=== PATIENT | male | born 1950 | race Caucasian/White ===

== ENCOUNTER 2024-10-26 09:11 | Emergency (ER) | payer MEDICARE, SELFPAY ==
[2024-10-26 09:11] VITALS: BP 172/85; PULSE 81; RESP 14; TEMP 36.1; O2SAT 95; O2SAT 98; BMI 32.7
--- NOTE | 2024-10-26 09:30 | ED.VIS.DYS ---
HPI History of Present Illness Chief Complaint: Shortness of Breath Informant: patient Onset/Context/Timing Onset: Month(s) (-04/28) Context: sudden Timing: Continuous Quality: Positive for Dyspnea on exertion Worsened by: Exertion Relieved by: Rest, Oxygen and Albuterol Associated Symptoms cough; Negative for rhinorrhea, post nasal drip, ear pain, fever, sore throat, chills, clear sputum, white sputum, yellow sputum or green sputum Narrative Narrative: Patient presents with shortness of breath that has been constant for the past month and a half. Patient states a came on rather suddenly. Patient stated he noticed some bruising in his right inguinal area and then noted some shortness of breath. Patient states he has a history of PE. Patient states it feels somewhat similar to that. Patient states he has been all along a car trip recently. Patient states his breathing is worse with any exertion. Patient states he took 6 sublingual nitroglycerin tablets over the past 2 days. Patient is also used for nitroglycerin patches over the past 2 days. Patient states he completed a course of prednisone and a course of an antibiotic with no improvement. Patient states he has been using his inhaler and aerosol machine with some improvement. PE Risk Factors: Positive for Recent travel [facility] Medical History (Updated 10/26/24 @ 13:[address] Mitchell Stratton, DO) Pulmonary embolism Coronary artery disease Home Medications ?Medication ?Instructions ?Recorded ?Last Taken ?Type albuterol sulfate 90 mcg/actuation 2 inh inhalation Q6H PRN shortness 10/26/24 Unknown History aerosol inhaler (Ventolin HFA) of breath or wheezing amlodipine 10 mg tablet 10 mg PO DAILY 10/26/24 10/26/24 History escitalopram oxalate 20 mg tablet 20 mg PO DAILY 10/26/24 10/26/24 History finasteride 5 mg tablet 5 mg PO DAILY 10/26/24 10/26/24 History ipratropium 0.5 mg-albuterol 3 mg 3 ml inhalation Q8H PRN shortness 10/26/24 10/25/24 History (2.5 mg base)/3 mL nebulization of breath soln magnesium 250 mg tablet 250 mg PO DAILY 10/26/24 10/26/24 History montelukast 5 mg chewable tablet 10 mg PO DAILY 10/26/24 10/26/24 History (Singulair) multivitamin (Daily Multi-Vitamin 1 tab PO DAILY 10/26/24 10/26/24 History tablet) pantoprazole 20 mg tablet,delayed 20 mg PO DAILY 10/26/24 10/26/24 History release Allergy/AdvReac Type Severity Reaction Status Date / Time No Known Allergies Allergy Verified 10/26/24 09:14 Surgical History Hx of coronary artery bypass graft Hx of cholecystectomy Social History Smoking Status: Former smoker ROS ROS ED Constitutional Constitutional ED: Denies chills or fever(s) Eyes Eyes: Denies blurry vision or change in vision ENT ENT ED: Denies rhinorrhea or sore throat Cardiovascular Cardiovascular: Reports chest pain; Denies palpitations Respiratory/Chest Respiratory/Chest: Reports cough and dyspnea Gastrointestinal Gastrointestinal: Denies nausea or vomiting Genitourinary Genitourinary ED: Denies dysuria or hematuria Musculoskeletal Musculoskeletal: Denies back pain or neck pain Integumentary Denies abscess or rash Neurologic Neurologic: Denies headache(s) or weakness Allergic/Immunologic Allergic/Immunologic ED: Denies mouth swelling or urticaria EXAM Physical Exam Const Vital Signs: 10/26/24 09:11 10/26/24 09:11 10/26/24 09:52 Temperature 97 F L Temperature Source Temporal Pulse Rate 81 Respiratory Rate 14 Respiratory Effort Normal Respiratory Depth Normal Respiratory Pattern Normal Blood Pressure 172/85 H Blood Pressure Mean 114 Pulse Ox 98 Oxygen Delivery Method Room Air Room Air Room Air 10/26/24 11:15 10/26/24 13:00 Temperature Temperature Source Pulse Rate 67 64 Respiratory Rate 14 17 Respiratory Effort Respiratory Depth Respiratory Pattern Blood Pressure 147/82 H Blood Pressure Mean 98 Pulse Ox 96 92 Oxygen Delivery Method Room Air Positive well nourished and well developed General Appearance ED: well developed and NAD HEENT Reports moist mucous membranes Neck supple, no meningeal signs and no JVD Resp normal respiratory effort Auscultation: wheezes throughout Cardio regular rate and regular rhythm GI non-tender and non-distended Palpation: soft Neuro oriented x3, CN's II-XII intact bilaterally and no sensory deficits noted Elsa Coma Scale: document GCS findings Spontaneous Obeys Commands Oriented 15 Sensorium / Orientation: alert Speech: speech normal Motor Exam: strength 5/5 throughout Psych mental status grossly normal MDM MDM MDM Narrative Medical decision making narrative: Differential diagnosis includes pulmonary embolism, cardiac dysrhythmia, cardiac ischemia, pneumonia, bronchitis, reactive airway disease, and anxiety. EKG will be obtained to assess for cardiac dysrhythmia and cardiac ischemia. CT of the chest will be obtained to assess for pulmonary embolism and aortic dissection. CBC will be obtained to assess for leukocytosis and anemia. Basic metabolic profile will be obtained to assess for electrolyte abnormality and renal function. High-sensitivity troponin will be obtained to assess for cardiac ischemia. 2-hour repeat high-sensitivity troponin will be obtained to assess for ongoing cardiac ischemia. History & Record Review Additional record(s) reviewed:: No prior records Lab Data Attestation: I reviewed the patient's lab results. Lab results narrative: CBC was reviewed and was within normal limits. Basic metabolic profile was reviewed. He did have a mildly elevated at 164. The remainder is within normal limits. Initial high-sensitivity troponin was reviewed and was normal at 20. 2-hour repeat high-sensitivity troponin was reviewed and was normal at 17. Labs: Laboratory Results - last 24 hr 10/26/24 10/26/24 10:12 11:58 WBC 9.8 RBC 4.76 Hgb 14.2 Hct 41.4 MCV 87.0 MCH 29.8 MCHC 34.3 RDW Std Deviation 42.2 RDW Coeff of Reji 13.3 Plt Count 223 MPV 9.8 Immature Gran % (Auto) 0.500 Neut % (Auto) 57.3 Lymph % (Auto) 26.8 [place] % (Auto) 9.3 Eos % (Auto) 5.6 H Baso % (Auto) 0.5 Absolute Neuts (auto) 5.6 Absolute Lymphs (auto) 2.64 Nucleated RBC % 0 Sodium 140 Potassium 3.2 L Chloride 100 Carbon Dioxide 29.3 Anion Gap 10 BUN 21 H Creatinine 0.86 Estim Creat Clear Calc 100.69 Est GFR (MDRD) Non-Af 93 BUN/Creatinine Ratio 25.0 H Glucose 164 H Calcium 9.2 Troponin T High Sens 20 Troponin T Hi Sens 2 Hr 17 Radiography CTA PE Study: No Evidence of PE and No Evidence of Dissection Diagnostic Testing: Clinical Impression(s) from Imaging Studies Chest CTA 10/26/24 09:41 IMPRESSION: The right thyroid lobe is heterogeneous and enlarged. Consider ultrasound correlation. There is no visible pulmonary embolus. Reading Location: [facility] CT of the chest was obtained. The right thyroid lobe was enlarged. There is no evidence of pulmonary embolism. There is no evidence of aortic dissection. There is no acute infiltrate noted. This was interpreted by the radiologist and was also independently reviewed by myself. EKG Initial EKG: Attestation: I personally reviewed and interpreted this EKG as follows: Interpretation: Sinus Rhythm (70) and No Acute Injury Pattern Comments: EKG was obtained. On my independent interpretation, it showed a normal sinus rhythm with a rate of 70. VT interval, QRS interval, and QTc intervals were all normal. There is left axis deviation -23. There are no acute ST or T wave changes. Prior EKG tracings: not available for review Prior: No Prior Treatment and Re-Evaluation :: Patient was given aspirin. Patient felt better after this. Patient was advised of his findings. Patient was instructed to continue his aerosols and inhalers as prescribed. Patient was given a dose of Solu-Medrol here. Patient was instructed to follow-up with his primary care physician in 5 to 7 days. Patient was instructed to return if worse in any way. Patient understood and was agreeable with the plan. All questions were answered. Discharge Plan Triage Chief Complaint: Shortness of Breath ED Provider: Mitchell Stratton Dx/Rx/DC Orders Clinical Impression: Dyspnea, Reactive airway disease Instructions: ED Dyspnea, ED MDI Use Spacer or None Prescriptions: No Action amlodipine 10 mg tablet 10 mg PO DAILY escitalopram oxalate 20 mg tablet 20 mg PO DAILY finasteride 5 mg tablet 5 mg PO DAILY montelukast [Singulair] 5 mg tablet,chewable 10 mg PO DAILY albuterol sulfate [Ventolin HFA] 90 mcg/actuation HFA aerosol inhaler 2 inh inhalation Q6H PRN (Reason: shortness of breath or wheezing) pantoprazole 20 mg tablet,delayed release (DR/EC) 20 mg PO DAILY magnesium 250 mg tablet 250 mg PO DAILY ipratropium-albuterol 0.5 mg-3 mg(2.5 mg base)/3 mL solution for nebulization 3 ml inhalation Q8H PRN (Reason: shortness of breath) Rx Instructions: for 3 doses multivitamin [Daily Multi-Vitamin] Tablet 1 tab PO DAILY Primary Care Provider: Ana Rosa Doctor,Out of Referrals: Ana Rosa Doctor,Out of [Primary Care Provider] - 5-7 Days Print Language: Nepali Disposition Disposition: Home, Self Care
--- NOTE | 2024-10-26 09:41 | CT_ITS ---
PROCEDURE: CTA CHEST W/WO CONTRAST 10/26/2024 REASON FOR EXAM: DYSPNEA TECHNIQUE: CTA CHEST W/WO CONTRAST Multiplanar Sagittal and Coronal images were obtained. CONTRAST: 100 cc Isovue 370 One or more dose reduction techniques were used (e.g., Automated exposure control, adjustment of the mA and/or kV according to patient size, use of iterative reconstruction technique). RADIATION DOSE SUMMARY: DLP: 543.29 mGycm COMPARISON: None FINDINGS: Hardware: Sternotomy wires are noted the right thyroid lobe is heterogeneously enlarged. Lymph nodes: There is no pathologic adenopathy. Heart: Atherosclerotic calcifications are noted RV/LV Diameter Ratio: 0.8 Thoracic Aorta: Aortic calcifications are noted Pulmonary Vessels: Pulmonary artery Hounsfield units = 278. Most Proximal Level of Embolus (if embolus present): Lungs and Airways: There is no infiltrate or consolidation. There is no suspicious pulmonary nodule or mass. Pleura: There is no pneumothorax or effusion. Upper Abdomen: 2 cm cyst is noted in the left hepatic lobe. Bones: There is no acute bony abnormality. CT/CTA Chest W/WO Contrast IMPRESSION: The right thyroid lobe is heterogeneous and enlarged. Consider ultrasound jose elation. There is no visible pulmonary embolus. Reading Location: [facility]
[2024-10-26 10:28] LABS: Hematocrit 41.4 % (40-54); Hemoglobin 14.2 g/dL (13.0-16.5); Immature Granulocytes Count 0.050 X10^3/uL (0.0-0.0); Mean Corp Hgb Conc 34.3 g/dL (32-36); Mean Corpuscular Volume 87.0 fL (80-94); Mean Platelet Vol. 9.8 fl (6.2-12.0); NRBC Flagged by Analyzer 0 % (0-5); Platelet Count 223 K/mm3 (150-450); RBC Distribution Width CV 13.3 % (11.6-14.6); RBC Distribution Width SD 42.2 fl (35.1-43.9); Red Blood Count 4.76 M/mm3 (4.6-6.2); White Blood Count 9.8 K/mm3 (4.4-11.0)
[2024-10-26 11:11] LABS: Anion Gap 10 (5-15); BUN 21 mg/dL (4-19); BUN/Creat Ratio 25.0 RATIO (10-20); Calcium,Total 9.2 mg/dL (7.6-11.0); Carbon Dioxide 29.3 mmol/L (21.0-32.0); Chloride 100 mmol/L (98-108); Estimated Creatinine Clearance 100.69 ml/min (50-250); Glucose 164 mg/dL (70-99); Potassium 3.2 mmol/L (3.3-5.1); Troponin T High Sensitivity 20 ng/L (<=22)
[2024-10-26 11:15] VITALS: BP 147/82; PULSE 67; RESP 14; O2SAT 96
[2024-10-26 12:38] LABS: Troponin T High Sens 2 HR 17 ng/L (<=22)
[2024-10-26 13:00] VITALS: PULSE 64; RESP 17; O2SAT 92
[2024-10-26 13:30] VITALS: BP 161/79; PULSE 64; RESP 17; TEMP 36.8; O2SAT 92
== END 2024-10-26 13:30 | disposition home or self-care (01) ==
PROVIDERS: Emergency Provider Emergency Medicine; Visit Provider Emergency Medicine
DX: J45.909 Unspecified asthma, uncomplicated (principal); R06.00 Dyspnea, unspecified; Z87.891 Personal history of nicotine dependence; I25.10 Atherosclerotic heart disease of native coronary artery without angina pectoris; Z90.49 Acquired absence of other specified parts of digestive tract
CPT/HCPCS: 71275; 80048; 84484; 85025; 93005; 96374; 99284; Q9967; A4216

== ENCOUNTER 2024-11-10 12:49 | Emergency (ER) | payer MEDICARE, SELFPAY ==
[2024-11-10] VITALS (18 sets, daily range): BP systolic 144–175; BP diastolic 80–123; PULSE 74–90; RESP 12–28; TEMP 36.6–36.9; O2SAT 94–98; BMI 32.5
--- NOTE | 2024-11-10 13:16 | ED.VIS.DYS ---
HPI History of Present Illness Chief Complaint: Shortness of Breath Informant: patient Onset/Context/Timing Onset: Weeks (2) Context: gradual Timing: Continuous Quality: Positive for Dyspnea on exertion and Wheezing Worsened by: Exertion Relieved by: Albuterol Associated Symptoms cough; Negative for rhinorrhea, post nasal drip, ear pain, fever, sore throat, chills, clear sputum, white sputum, yellow sputum or green sputum Chest Pain: Positive for Pressure and Tightness Narrative Narrative: Patient presents with shortness of breath that has been getting worse for the past 2 weeks. Patient states he hears himself wheezing. Patient was seen here 2 weeks ago for possible pulmonary embolism. Patient was feeling better and was discharged home. Patient states his breathing is worse with any exertion. Patient states it was better with albuterol. Patient states he has been using his albuterol nebulizers every hour. Patient admits to a cough with some brown sputum. Patient denies any fevers or chills. Patient admits to some tightness and pressure in his chest. Patient also admits to mild headache. PE Risk Factors: Positive for Recent travel; Negative for Cancer, OCP + Smoking + > 35, Prior DVT or PE, Recent immobilization or Recent surgery [facility] Medical History (Updated 11/10/24 @ 17:[address] Mitchell Stratton, DO) Asthma Pulmonary embolism Coronary artery disease Home Medications ?Medication ?Instructions ?Recorded ?Last Taken ?Type albuterol sulfate 90 mcg/actuation 2 inh inhalation Q6H PRN shortness 10/26/24 Unknown History aerosol inhaler (Ventolin HFA) of breath or wheezing amlodipine 10 mg tablet 10 mg PO DAILY 10/26/24 10/26/24 History escitalopram oxalate 20 mg tablet 20 mg PO DAILY 10/26/24 10/26/24 History finasteride 5 mg tablet 5 mg PO DAILY 10/26/24 10/26/24 History ipratropium 0.5 mg-albuterol 3 mg 3 ml inhalation Q8H PRN shortness 10/26/24 10/25/24 History (2.5 mg base)/3 mL nebulization of breath soln magnesium 250 mg tablet 250 mg PO DAILY 10/26/24 10/26/24 History montelukast 5 mg chewable tablet 10 mg PO DAILY 10/26/24 10/26/24 History (Singulair) multivitamin (Daily Multi-Vitamin 1 tab PO DAILY 10/26/24 10/26/24 History tablet) pantoprazole 20 mg tablet,delayed 20 mg PO DAILY 10/26/24 10/26/24 History release prednisone 10 mg tablet 10 mg PO UD #33 tabs 11/10/24 Unknown Rx Allergy/AdvReac Type Severity Reaction Status Date / Time No Known Allergies Allergy Verified 11/10/24 12:51 Surgical History Hx of coronary artery bypass graft Hx of cholecystectomy Social History Smoking Status: Former smoker ROS ROS ED Constitutional Constitutional ED: Denies chills or fever(s) Eyes Eyes: Denies blurry vision or change in vision ENT ENT ED: Denies rhinorrhea or sore throat Cardiovascular Cardiovascular: Reports chest pain; Denies palpitations Respiratory/Chest Respiratory/Chest: Reports cough and dyspnea Gastrointestinal Gastrointestinal: Denies nausea or vomiting Genitourinary Genitourinary ED: Denies dysuria or hematuria Musculoskeletal Musculoskeletal: Denies back pain or neck pain Integumentary Denies abscess or rash Neurologic Neurologic: Reports headache(s); Denies weakness Allergic/Immunologic Allergic/Immunologic ED: Denies mouth swelling or urticaria EXAM Physical Exam Const Vital Signs: 11/10/24 12:49 11/10/24 13:20 11/10/24 13:23 Temperature 98.4 F Temperature Source Oral Pulse Rate 90 Respiratory Rate 28 H Respiratory Effort Labored Respiratory Depth Deep Respiratory Pattern Normal Blood Pressure 155/93 H Blood Pressure Mean 113 Pulse Ox 94 Oxygen Delivery Method Room Air Room Air Room Air 11/10/24 13:49 11/10/24 14:00 11/10/24 14:03 Temperature Temperature Source Pulse Rate 80 88 88 Respiratory Rate 20 H 23 H 14 Respiratory Effort Respiratory Depth Respiratory Pattern Normal Blood Pressure 175/95 H 154/85 H Blood Pressure Mean 121 105 Pulse Ox 96 Oxygen Delivery Method Room Air 11/10/24 14:15 11/10/24 14:30 11/10/24 14:45 Temperature Temperature Source Pulse Rate 79 75 75 Respiratory Rate 19 H 20 H 20 H Respiratory Effort Respiratory Depth Respiratory Pattern Blood Pressure 152/80 H 155/80 H 152/85 H Blood Pressure Mean 100 100 101 Pulse Ox 96 95 95 Oxygen Delivery Method 11/10/24 15:00 11/10/24 15:15 11/10/24 15:52 Temperature Temperature Source Pulse Rate 75 74 81 Respiratory Rate 20 H 19 H 15 Respiratory Effort Respiratory Depth Respiratory Pattern Blood Pressure 154/86 H 144/84 H 163/123 H Blood Pressure Mean 105 102 137 Pulse Ox 95 94 96 Oxygen Delivery Method 11/10/24 16:00 11/10/24 16:15 11/10/24 16:31 Temperature Temperature Source Pulse Rate 75 80 Respiratory Rate 20 H 12 Respiratory Effort Respiratory Depth Respiratory Pattern Normal Blood Pressure 156/88 H 163/90 H Blood Pressure Mean 109 112 Pulse Ox 95 96 Oxygen Delivery Method Positive well nourished and well developed Constitutional Narrative: BMI is 32.6 General Appearance ED: well developed and NAD HEENT Reports moist mucous membranes HEENT Narrative: Oropharynx is clear. Airway is patent. There are no exudates noted. There is no erythema noted. There is no edema noted. Neck supple, no meningeal signs and no JVD Resp normal respiratory effort Auscultation: wheezes expiratory wheezes and throughout Cardio regular rate and regular rhythm GI non-tender and non-distended Palpation: soft Neuro oriented x3, CN's II-XII intact bilaterally and no sensory deficits noted Elsa Coma Scale: document GCS findings Spontaneous Obeys Commands Oriented 15 Sensorium / Orientation: alert Speech: speech normal Motor Exam: strength 5/5 throughout Psych mental status grossly normal Thought Process: normal thought process MDM MDM MDM Narrative Medical decision making narrative: Differential diagnosis includes asthma, bronchitis, pneumonia, electrolyte abnormality, cardiac dysrhythmia, cardiac ischemia, and reactive airway disease. Chest x-ray will be obtained to assess for pneumonia or bronchitis. CBC will be obtained to assess for leukocytosis and anemia. Basic metabolic profile will be obtained to assess for electrolyte abnormality and renal function. EKG will be obtained to assess for cardiac dysrhythmia cardiac ischemia. High-sensitivity troponin will be obtained to assess for cardiac ischemia. History & Record Review Additional record(s) reviewed:: Prior ED visit and Prior labs Lab Data Attestation: I reviewed the patient's lab results. Lab results narrative: CBC was reviewed and was within normal limits. Basic metabolic profile was reviewed and was within normal limits. Initial high-sensitivity troponin was reviewed and was normal at 15. 2-hour repeat high-sensitivity troponin was reviewed and was also normal at 15. COVID-19 PCR was reviewed and was negative. Influenza PCR was reviewed and was negative for influenza A and influenza B. RSV PCR was reviewed and was negative. Labs: Laboratory Results - last 24 hr 11/10/24 11/10/24 13:20 15:22 WBC 6.7 RBC 4.76 Hgb 14.0 Hct 41.5 MCV 87.2 MCH 29.4 MCHC 33.7 RDW Std Deviation 42.3 RDW Coeff of Reji 13.2 Plt Count 219 MPV 9.7 Immature Gran % (Auto) 0.100 Neut % (Auto) 55.0 Lymph % (Auto) 23.2 [place] % (Auto) 6.9 Eos % (Auto) 13.8 H Baso % (Auto) 1.0 Absolute Neuts (auto) 3.7 Absolute Lymphs (auto) 1.55 Nucleated RBC % 0 Sodium 141 Potassium 3.7 Chloride 104 Carbon Dioxide 27.1 Anion Gap 11 BUN 12 Creatinine 0.85 Estim Creat Clear Calc 101.67 Est GFR (MDRD) Non-Af 93 BUN/Creatinine Ratio 14.6 Glucose 160 H Calcium 9.3 Troponin T High Sens 15 D Troponin T Hi Sens 2 Hr 15 Radiography Diagnostic Testing: Clinical Impression(s) from Imaging Studies Chest X-Ray 11/10/24 13:42 IMPRESSION: No acute cardiopulmonary abnormality. Reading Location: [facility] PA and lateral chest x-ray was obtained. There are 2 views. On my independent interpretation, lung chu are clear. There is normal cardiac silhouette. Bony thorax is normal. There is no acute process noted. Radiologist also interpreted the x-ray and agrees. EKG Initial EKG: Attestation: I personally reviewed and interpreted this EKG as follows: Interpretation: Sinus Rhythm (80) and No Acute Injury Pattern Comments: EKG was obtained. On my independent interpretation, it showed a normal sinus rhythm with a rate of 80. RI interval, QRS interval, and QTc intervals were all normal. There is left axis deviation at -31. There are no acute ST or T wave changes. Prior EKG tracings: available for review Prior: Unchanged (10/26/2024) Treatment and Re-Evaluation :: Patient was given a DuoNeb aerosol here. Patient was given a dose of Solu-Medrol here. Patient was given a repeat DuoNeb aerosol. Patient was feeling better after this. Patient was advised of his findings. Patient states he has tried to get an appointment with a electrode cleaner. states that this will not be available until January. Patient was given a prescription for a tapered course of prednisone. Patient will be given referral for pulmonology. Patient and were instructed to let the electrode cleaner know that they were seen in the emergency department twice and they need a follow-up appointment from the emergency department. Patient and understood and were agreeable with the plan. All questions were answered. Discharge Plan Triage Chief Complaint: Shortness of Breath ED Provider: Mitchell Stratton Dx/Rx/DC Orders Clinical Impression: Asthma, Hypertension Instructions: ED Asthma, Acute (Adult) Prescriptions: New prednisone 10 mg tablet 10 mg PO UD Qty: 33 0RF Rx Instructions: Take 4 tablets daily for 3 days, then 3 daily for 3 days, then 2 daily for 3 days, then 1 a day for 3 days then 1 QOD for 3 doses. No Action amlodipine 10 mg tablet 10 mg PO DAILY escitalopram oxalate 20 mg tablet 20 mg PO DAILY finasteride 5 mg tablet 5 mg PO DAILY montelukast [Singulair] 5 mg tablet,chewable 10 mg PO DAILY albuterol sulfate [Ventolin HFA] 90 mcg/actuation HFA aerosol inhaler 2 inh inhalation Q6H PRN (Reason: shortness of breath or wheezing) pantoprazole 20 mg tablet,delayed release (DR/EC) 20 mg PO DAILY magnesium 250 mg tablet 250 mg PO DAILY ipratropium-albuterol 0.5 mg-3 mg(2.5 mg base)/3 mL solution for nebulization 3 ml inhalation Q8H PRN (Reason: shortness of breath) Rx Instructions: for 3 doses multivitamin [Daily Multi-Vitamin] Tablet 1 tab PO DAILY Primary Care Provider: Ana Rosa Gordon,Out of Referrals: Israel Boss DO [Med Staff - Active Staff] - 5-7 Days Ana Rosa Gordon,Out of [Primary Care Provider] - Activity Restrictions/Additional Instructions: Call tomorrow to schedule appointment. Tell them you were seen in the emergency department twice and this is for emergency department follow-up. Print Language: Gabonese Disposition Disposition: Home, Self Care
[2024-11-10 13:40] LABS: Hematocrit 41.5 % (40-54); Hemoglobin 14.0 g/dL (13.0-16.5); Immature Granulocytes Count 0.010 X10^3/uL (0.0-0.0); Mean Corp Hgb Conc 33.7 g/dL (32-36); Mean Corpuscular Volume 87.2 fL (80-94); Mean Platelet Vol. 9.7 fl (6.2-12.0); NRBC Flagged by Analyzer 0 % (0-5); Platelet Count 219 K/mm3 (150-450); RBC Distribution Width CV 13.2 % (11.6-14.6); RBC Distribution Width SD 42.3 fl (35.1-43.9); Red Blood Count 4.76 M/mm3 (4.6-6.2); White Blood Count 6.7 K/mm3 (4.4-11.0)
--- NOTE | 2024-11-10 13:42 | RAD_ITS ---
PROCEDURE: CHEST PA AND LATERAL 11/10/2024 REASON FOR EXAM: DYSPNEA TECHNIQUE: CHEST PA AND LATERAL COMPARISON: CT chest dated 10/26/2024 FINDINGS: Hardware: None Heart: Sequelae of CABG with median sternotomy wires. Mediastinum: The mediastinal contour is stable. Trace aortic atherosclerosis. Lungs: No focal consolidation or pleural effusion. Bones: Degenerative changes of the shoulders and spine. RAD/Chest PA and Lateral IMPRESSION: No acute cardiopulmonary abnormality. Reading Location: [id number]
--- NOTE | 2024-11-10 13:42 | RAD_ITS ---
PROCEDURE: CHEST PA AND LATERAL 11/10/2024 REASON FOR EXAM: DYSPNEA TECHNIQUE: CHEST PA AND LATERAL COMPARISON: CT chest dated 10/26/2024 FINDINGS: Hardware: None Heart: Sequelae of CABG with median sternotomy wires. Mediastinum: The mediastinal contour is stable. Trace aortic atherosclerosis. Lungs: No focal consolidation or pleural effusion. Bones: Degenerative changes of the shoulders and spine. RAD/Chest PA and Lateral IMPRESSION: No acute cardiopulmonary abnormality. Reading Location: [id number]
[2024-11-10 14:25] LABS: Troponin T High Sensitivity 15 ng/L (<=22)
[2024-11-10 14:26] LABS: Anion Gap 11 (5-15); BUN 12 mg/dL (4-19); BUN/Creat Ratio 14.6 RATIO (10-20); Calcium,Total 9.3 mg/dL (7.6-11.0); Carbon Dioxide 27.1 mmol/L (21.0-32.0); Chloride 104 mmol/L (98-108); Estimated Creatinine Clearance 101.67 ml/min (50-250); Glucose 160 mg/dL (70-99); Potassium 3.7 mmol/L (3.3-5.1)
[2024-11-10 15:54] LABS: Troponin T High Sens 2 HR 15 ng/L (<=22)
--- OUTSIDE RECORDS SUMMARY | 2024-11-10 19:50 | XMS RPT_ITS | CCD ---
Author Organization [facility] Inform ion Partnership [facility] Care Team Providers Care Change Coordinator Name Role Phone Unavailable Primary Care Provider Stevie Oseguera Doctor, Out of Primary Care Provider Dr. Mitchell Alicia DO Emergency Provider JACKLYN BOWDEN Attending Unavailable JOSSY ALVARENGA Attending Unavailable Mitchell Stratton Attending Unavailable Ana Rosa Doctor, Out of Primary Care Unavailable Medications Current Medications Medication Drug Class(es) Dates Sig (Normalized) Sig (Original) [id number] actuat albuterol 0.09 mg/actuat metered dose inhaler (3 sources) beta2-Adrenergic Agonist Start: 10-26-2024 Albuterol Sulfate (Ventolin Hfa) 90 mcg/actuation HFA aerosol inhaler Active 2 NMA INHALATION EVERY 6 HOURS as needed for shortness of breath or wheezing October 26, 2024 12:00am Start: 06-19-2022 albuterol (PRO VENTIL) 2.5 mg /3 mL (0.083 %) nebulizer solution USE 3 ML VIA NEBULIZER EVERY 6 HOURS NEEDED FOR ASTHMA 06/19/2022 Active albuterol 0.833 mg/ml / ipratropium bromide 0.167 mg/ml inhalation solution (1 source) Anticholinergic, beta2-Adrenergic Agonist Start: 10-26-2024 Ipratropium-Albuterol 0.5 mg-3 mg(2.5 mg base)/3 mL solution for nebulization Active 3 mL INHALATION Q8H as needed for shortness of breath October 26, 2024 12:00am for 3 doses amLODIPine 10 mg oral tablet (3 sources) Dihydropyridine Calcium Channel Jaxson Start: 10-26-2024 take 1 tablet by mouth once daily Amlodipine 10 mg tablet Active 10 mg PO DAILY October 26, 2024 12:00am aspirin 81 mg oral tablet (2 sources) Platelet Aggregation Inhibitor, Nonsteroidal Anti-inflammatory Drug Start: 10-02-2005 ASPIRIN 81 MG TAB Indications: Shortness of breath , Other chest pain , Other and unspecified hyperlipidemia , Anxiety state, unspecified Take one (1) tablet daily . 0 10/02/2005 Active escitalopram 20 mg oral tablet (3 sources) Serotonin Reuptake Inhibitor Start: 10-26-2024 take 1 tablet by mouth once daily Escitalopram Oxalate 20 mg tablet Active 20 mg PO DAILY October 26, 2024 12:00am Start: 10-02-2005 LEXAPRO 10 MG TAB Indications: Shortness of breath , Other chest pain , Other and unspecified hyperlipidemia , Anxiety state, unspecified Take three tablets in the evening 0 10/02/2005 Active finasteride 5 mg oral tablet (3 sources) 5-alpha Reductase Inhibitor Start: 10-26-2024 take 1 tablet by mouth once daily Finasteride 5 mg tablet Active 5 mg PO DAILY October 26, 2024 12:00am Magnesium (1 source) Start: 10-26-2024 take 1 tablet by mouth once daily Magnesium 250 mg tablet Active 250 mg PO DAILY October 26, 2024 12:00am magnesium carbonate (2 sources) MAGNESIUM CARBONATE ORAL Take by mouth. Active montelukast 5 mg chewable tablet (3 sources) Leukotriene Receptor Antagonist Start: 10-26-2024 take 2 tablets by mouth once daily Montelukast (Singulair) 5 mg tablet,chewable Active 10 mg PO DAILY October 26, 2024 12:00am take 1 tablet by mouth once ileana y montelukast (SINGULAIR) 10 mg tablet Take 10 mg by mouth once daily. Active multivit with iron,minerals (COMPLETE MULTIVITAMIN ORAL) (2 sources) multivit with iron,minerals (COMPLETE MULTIVITAMIN ORAL) Take by mouth. Active Multivitamin (Daily Multi-Vitamin) tablet (1 source) Start: 10-27-19 25 Multivitamin (Daily Multi-Vitamin) tablet Active 1 {tbl} PO DAILY October 26, 2024 12:00am 24 hr nitroglycerin 0.4 mg/hr transdermal system (2 sources) Nitrate Vasodilator Start: 10-03-19 06 NITRO-DUR 0.4 MG/HR TRANSDERM 24 HR PATCH Indications: Shortness of breath , Other chest pain , Other and unspecified hyperlipidemia , Anxiety state, unspecified Apply to extremity once per 24 hours. 0 10/02/2005 Active pantoprazole 20 mg delayed release oral tablet (1 source) Proton Pump Inhibitor Start: 10-27-19 take 1 tablet by mouth once daily Pantoprazole 20 mg tablet,delayed release (DR/EC) Active 20 mg PO DAILY October 26, 2024 12:00am pravastatin sodium 10 mg oral tablet (2 sources) HMG-CoA Reductase Inhibitor Start: 10-04-19 PRAVACHOL 10 MG TAB Indications: Other and unspecified hyperlipidemia Take one(1) tablet daily. 30 12 10/03/2005 Active predniSONE 10 mg oral tablet (2 sources) Start: 10-19-19 predniSONE (DELTASONE) 10 mg tablet Indications: Moderate asthma with acute exacerbation, unspecified whether persistent (HCC) Take 4 tabs daily for 3 days, then 2 tabs daily for 3 days, then 1 tab daily for 3 days with food. 21 tablet 10/18/2024 Active Problems Problem Classification Problem Date Documented Da te Episodic/Chronic Asthma (3 sources) Moderate asthma; Translations: [Unspecified asthma with (acute) exacerbation] Onset: 10-18-2024 10-18-2024 Chronic Coronary atherosclerosis and other heart disease (1 source) Coronary arteriosclerosis; Translations: [Atherosclerotic heart disease of inupiat coronary artery without angina pectoris] 10-26-2024 Chronic Other lower respiratory disease (2 sources) Dyspnea; Translations: [Dyspnea, unspecified] 10-26-2024 Episodic Other lower respiratory disease (1 source) Dyspnea, unspecified; Translations: [Dyspnea, unspecified] Onset: 11-01-2024 Episodic Pulmonary heart disease (1 source) Pulmonary embolism; Translations: [Other pulmonary embolism without acute cor pulmonale] 10-26-2024 Episodic Results Test Name Value Interpretation Reference Range Facility Absolute lymphocyte countOrd ered By: Mitchell Stratton on 10-26-2024 Lymphocytes Auto (Unsp spec) [#/Vol] 2.64 10*3/uL 0.83-4.51 [facility] Absolute neutrophil countOrd ered By: Mitchell Stratton on 10-26-2024 Neutrophils (Bld) [#/Vol] 5.6 10*3/uL 2.0-7.7 [facility] Anion gap in Serum or Plasma Ordered By: Mitchell Stratton on 10-26-2024 Anion gap [Moles/Vol] 10 mmol/L 5-15 [facility] Automated lymphocyte count a s percentage of total leukocytesOrdered By: Mitchell Stratton on 10-26-2024 Lymphocytes/100 WBC Auto (Unsp spec) 26.8 % 19-41 [facility] BUN/creatinine ratioOrdered By: Mitchell Stratton on 10-26-2024 Urea nitrogen/Creatinine [Mass ratio] 25.0 mg/mg High - [facility] Basic Metabolic Profile (BMP )on 10-26-2024 BUN/CRE 25.0 RATIO High - [facility] Comment on above: Performed By: #### L 500.2500, L100.0100, L501.4021 #### [facility] [address] [place], [address] Calcium [Mass/Vol] 9.2 mg/dL Normal 7.6-11.0 [facility] Comment on above: Performed By: #### L 500.2500, L100.0100, L501.4021 #### [facility] [address] [place], [address] Chloride [Moles/Vol] 100 mmol/L Normal 98-108 [facility] Comment on above: Performed By: #### L 500.2500, L100.0100, L501.4021 #### [facility] [address] [place], [address] CO2 [Moles/Vol] 29.3 mmol/L Normal 21.0-32.0 [facility] Comment on above: Performed By: #### L 500.2500, L100.0100, L501.4021 #### [facility] [address] [place], [address] Creatinine [Mass/Vol] 0.86 mg/dL Normal 0.70-1.20 [facility] Comment on above: Performed By: #### L 500.2500, L100.0100, L501.4021 #### [facility] [address] [place], [address] ECRCL 100.69 ml/min Normal 50-250 [facility] Comment on above: Performed By: #### L 500.2500, L100.0100, L501.4021 #### [facility] [address] [place], [address] GAP 10 Normal 5-15 [facility] Comment on above: Performed By: #### L 500.2500, L100.0100, L501.4021 #### [facility] [address] [place], [address] GFR/1.73 sq M.predicted among non-blacks MDRD (S/P/Bld) [Vol rate/Area] 93 mL/min/{1.73_m2} Normal >60 [facility] Comment on above: Result Comment: mL/m in/1.73m2 CKD-EPI Creatinine Equation (2020) Performed By: #### L 500.2500, L100.0100, L501.4021 #### [facility] [address] [place], [address] Glucose [Mass/Vol] 164 mg/dL High 70-99 [facility] Comment on above: Performed By: #### L 500.2500, L100.0100, L501.4021 #### [facility] [address] [place], [address] Potassium [Moles/Vol] 3.2 mmol/L Low 3.3-5.1 [facility] Comment on above: Performed By: #### L 500.2500, L100.0100, L501.4021 #### [facility] [address] [place], [address] Sodium [Moles/Vol] 140 mmol/L Normal 133-145 [facility] Comment on above: Performed By: #### L 500.2500, L100.0100, L501.4021 #### [facility] [address] [place], [address] Urea nitrogen [Mass/Vol] 21 mg/dL High 4-19 [facility] Comment on above: Performed By: #### L 500.2500, L100.0100, L501.4021 #### [facility] [address] [place], [address] Basophil percentageOrdered B y: Mitchellrhonda Stratton on 10-26-2024 Basophils/100 WBC (Bld) 0.5 % 0-1 [facility] CBC W/Diff, Automatedon Absolute Lymph 2.64 X10 3/uL Normal 0.83-4.51 [facility] Comment on above: Performed By: #### L 500.2500, L100.0100, L501.4021 #### [facility] [address] [place], [address] Absolute Neut 5.6 X10 3/uL Normal 2.0-7.7 [facility] Comment on above: Performed By: #### L 500.2500, L100.0100, L501.4021 #### [facility] [address] [place], [address] Basophils/100 WBC (Bld) 0.5 % Normal 0-1 [facility] Comment on above: Performed By: #### L 500.2500, L100.0100, L501.4021 #### [facility] [address] [place], [address] Eosinophils/100 WBC (Bld) 5.6 % High 0-5 [facility] Comment on above: Performed By: #### L 500.2500, L100.0100, L501.4021 #### [facility] [address] [place], [address] Erythrocyte distribution width (RBC) [Ratio] 13.3 % Normal 11.6-14.6 [facility] Comment on above: Performed By: #### L 500.2500, L100.0100, L501.4021 #### [facility] [address] [place], [address] Hematocrit (Bld) [Volume fraction] 41.4 % Normal 40-54 [facility] Comment on above: Performed By: #### L 500.2500, L100.0100, L501.4021 #### [facility] [address] [place], [address] Hemoglobin (Bld) [Mass/Vol] 14.2 g/dL Normal 13.0-16.5 [facility] Comment on above: Performed By: #### L 500.2500, L100.0100, L501.4021 #### [facility] [address] [place], [address] IG% 0.500 Normal 0.0-0.9 [facility] Comment on above: Result Comment: IG% - Immature Granulocytes (promyelocytes, myelocytes and metamyelocytes) > 1% indicates that a LEFT SHIFT is Present. Performed By: #### L 500.2500, L100.0100, L501.4021 #### [facility] [address] [place], [address] Lymphocytes/100 WBC (Bld) 26.8 % Normal 19-41 [facility] Comment on above: Performed By: #### L 500.2500, L100.0100, L501.4021 #### [facility] [address] [place], [address] MCH (RBC) [Entitic mass] 29.8 pg Normal 27.0-32.0 [facility] Comment on above: Performed By: #### L 500.2500, L100.0100, L501.4021 #### [facility] [address] [place], [address] MCHC (RBC) [Mass/Vol] 34.3 g/dL Normal 32-36 [facility] Comment on above: Performed By: #### L 500.2500, L100.0100, L501.4021 #### [facility] [address] [place], [address] MCV (RBC) [Entitic vol] 87.0 fL Normal 80-94 [facility] Comment on above: Performed By: #### L 500.2500, L100.0100, L501.4021 #### [facility] [address] [place], [address] Monocytes/100 WBC (Bld) 9.3 % Normal 0-10 [facility] Comment on above: Performed By: #### L 500.2500, L100.0100, L501.4021 #### [facility] [address] [place], [address] Neutrophils/100 WBC (Bld) 57.3 % Normal 47-70 [facility] Comment on above: Performed By: #### L 500.2500, L100.0100, L501.4021 #### [facility] [address] [place], [address] Nucleated RBC (Bld) [#/Vol] 0 10*3/uL Normal 0-5 [facility] Comment on above: Performed By: #### L 500.2500, L100.0100, L501.4021 #### [facility] [address] [place], [address] Platelet mean volume (Bld) [Entitic vol] 9.8 fL Normal 6.2-12.0 [facility] Comment on above: Performed By: #### L 500.2500, L100.0100, L501.4021 #### [facility] [address] [place], [address] Platelets (Bld) [#/Vol] 223 10*3/uL Normal 150-450 [facility] Comment on above: Performed By: #### L 500.2500, L100.0100, L501.4021 #### [facility] [address] [place], [address] RBC (Bld) [#/Vol] 4.76 10*6/uL Normal 4.6-6.2 [facility] Comment on above: Performed By: #### L 500.2500, L100.0100, L501.4021 #### [facility] [address] [place], [address] RDW SD 42.2 fl Normal 35.1-43.9 [facility] Comment on above: Performed By: #### L 500.2500, L100.0100, L501.4021 #### [facility] [address] [place], [address] WBC (Bld) [#/Vol] 9.8 10*3/uL Normal 4.4-11.0 [facility] Comment on above: Performed By: #### L 500.2500, L100.0100, L501.4021 #### [facility] [address] [place], [address] CNOVon 10-26-2024 [facility] SRIDAHR MIJARES ([id number]) 1950 M Date Time Provider Department 10/26/24 8:45 AM JACKLYN BOWDEN [facility] During your visit today, we recorded the following information about you: Jacklyn Bowden APRN.COMMERCIAL ENGINEER 10/26/2024 9:01 AM Signed [facility] TRIAGE NOTE: Sridharmando Mijares is a 73 year old male who presents requesting testing for PE. States he has a history of this and was treated recently for bronchitis which did not help his chest pain and shortness of breath. He was seen 09/22/24 at [facility] ED for atypical chest pain. Patient is referred to [facility] for further evaluation and treatment-[facility] cannot order testing for PE. Jacklyn Bowden APRN.COMMERCIAL ENGINEER Allergies As of Date: 10/26/2024 (No Known Allergies) Date Reviewed: 10/18/2024 Reviewed by: Brittany Gastelum MA - Fully Assessed Primary Visit Diagnosis:SOB (shortness of breath) [R06.02] Prescriptions as of 10/26/2024 - amLODIPine (NORVASC) 10 mg tablet Take 10 mg by mouth once daily. - finasteride (PROSCAR) 5 mg tablet Take 5 mg by mouth once daily. - montelukast (SINGULAIR) 10 mg tablet Take 10 mg by mouth once daily. - multivit with iron,minerals (COMPLETE MULTIVITAMIN ORAL) Take by mouth. - albuterol (PROVENTIL) 2.5 mg /3 mL (0.083 %) nebulizer solution USE 3 ML VIA NEBULIZER EVERY 6 HOURS NEEDED FOR ASTHMA - MAGNESIUM CARBONATE ORAL Take by mouth. - predniSONE (DELTASONE) 10 mg tablet Take 4 tabs daily for 3 days, then 2 tabs daily for 3 days, then 1 tab daily for 3 days with food. - PRAVACHOL 10 MG TAB Take one(1) tablet daily. - LEXAPRO 10 MG TAB Take three tablets in the evening - ASPIRIN 81 MG TAB Take one (1) tablet daily . - NITRO-DUR 0.4 MG/HR TRANSDERM 24 HR PATCH Apply to extremity once per 24 hours. Problem List As Of Date: 10/26/2024 (None) Encounter Status:Closed by JACKLYN BOWDEN on 10/26/24 [facility] CTA Chest W/WO Contraston CTA Chest W/WO Contrast [facility] Imaging Services [address] [facility] [address] [place], [place] [address] CTA Chest W/WO Contrast MR#: [id number] Acct: [id number] Name: ALLISON MIJARES Rep #: [id number] : 1950 M 73 From: Mirza Guzman MD PCP: OUT OF TOWN DOCTOR Status: REG ER Study: CTA Chest W/WO Contrast Date of Exam: 10/26/24 Exam# [id number] Ordering Dr: Mitchell Stratton DO PROCEDURE: CTA CHEST W/WO CONTRAST 10/26/2024 REASON FOR EXAM: DYSPNEA TECHNIQUE: CTA CHEST W/WO CONTRAST Multiplanar Sagittal and Coronal images were obtained. CONTRAST: 100 cc Isovue 370 One or more dose reduction techniques were used (e.g., Automated exposure control, adjustment of the mA and/or kV according to patient size, use of iterative reconstruction technique). RADIATION DOSE SUMMARY: DLP: 543.29 mGycm COMPARISON: None FINDINGS: Hardware: Sternotomy wires are noted the right thyroid lobe is heterogeneously enlarged. Lymph nodes: There is no pathologic adenopathy. Heart: Atherosclerotic calcifications are noted RV/LV Diameter Ratio: 0.8 Thoracic Aorta: Aortic calcifications are noted Pulmonary Vessels: Pulmonary artery Hounsfield units = 278. Most Proximal Level of Embolus (if embolus present): Lungs and Airways: There is no infiltrate or consolidation. There is no suspicious pulmonary nodule or mass. Pleura: There is no pneumothorax or effusion. Upper Abdomen: 2 cm cyst is noted in the left hepatic lobe. Bones: There is no acute bony abnormality. CT/CTA Chest W/WO Contrast IMPRESSION: The right thyroid lobe is heterogeneous and enlarged. Consider ultrasound correlation. There is no visible pulmonary embolus. Reading Location: [facility] CC: Dr. Mitchell Stratton DO Category Director: Signed Normal [facility] Carbon dioxide, total [Moles /volume] in Central venous bloodOrdered By: Mitchell Stratton on 10-26-2024 CO2 [Moles/Vol] 29.3 mmol/L 21.0-32.0 [facility] Chloride assayOrdered By: Reese Stratton on 10-26-2024 Chloride [Moles/Vol] 100 mmol/L 98-108 [facility] Emergency Department Summary on 10-26-2024 Emergency Department Summary [facility] Medical Records Department [address] [place] [address] Emergency Department Summary 10/26/24 MR#: [id number] Acct: [id number] Name: ALLISON MIJARES Rep #: [id number] : 1950 73 From: Mitchell Stratton DO PCP: OUT OF TOWN DOCTOR Status:DEP ER Location: ED HPI History of Present Illness Chief Complaint: Shortness of Breath Informant: patient Onset/Context/Timin g Onset: Month(s) () Context: sudden Timing: Continuous Quality: Positive for Dyspnea on exertion Worsened by: Exertion Relieved by: Rest, Oxygen and Albuterol Associated Symptoms cough; Negative for rhinorrhea, post nasal drip, ear pain, fever, sore throat, chills, clear sputum, white sputum, yellow sputum or green sputum Narrative Narrative: Patient presents with shortness of breath that has been constant for the past month and a half. Patient states a came on rather suddenly. Patient stated he noticed some bruising in his right inguinal area and then noted some shortness of breath. Patient states he has a history of PE. Patient states it feels somewhat similar to that. Patient states he has been all along a car trip recently. Patient states his breathing is worse with any exertion. Patient states he took 6 sublingual nitroglycerin tablets over the past 2 days. Patient is also used for nitroglycerin patches over the past 2 days. Patient states he completed a course of prednisone and a course of an antibiotic with no improvement. Patient states he has been using his inhaler and aerosol machine with some improvement. PE Risk Factors: Positive for Recent travel [facility] Medical History (Updated 10/26/24 @ 13:[address] Mitchell Stratton, ) Pulmonary embolism Coronary artery disease Home Medications ???Medication ???Instructions ???Recorded ???Last Taken ???Type albuterol sulfate 90 mcg/actuation 2 inh inhalation Q6H PRN shortne ss 10/26/24 Unknown History aerosol inhaler (Ventolin HFA) of breath or wheezing amlodipine 10 mg tablet 10 mg PO DAILY 10/26/24 10/26/24 H istory escitalopram oxalate 20 mg tablet 20 mg PO DAILY 10/26/24 10/26/24 History finasteride 5 mg tablet 5 mg PO DAILY 10/26/24 10/26/24 Hi story ipratropium 0.5 mg-albuterol 3 mg 3 ml inhalation Q8H PRN shortness 10/26/24 10/25/24 History (2.5 mg base)/3 mL nebulization of breath soln magnesium 250 mg tablet 250 mg PO DAILY 10/26/24 10/26/24 History montelukast 5 mg chewable tablet 10 mg PO DAILY 10/26/24 10/26/24 H istory (Singulair) multivitamin (Daily Multi-Vitamin 1 tab PO DAILY 10/26/24 10/26/24 History tablet) pantoprazole 20 mg tablet,delayed 20 mg PO DAILY 10/26/24 10/26/24 History release Allergy/AdvReac Type Severity Reaction Status Date / Time No Known Allergies Allergy Verified 10/26/24 09:14 Surgical History Hx of coronary artery bypass graft Hx of cholecystectomy Social History Smoking Status: Former smoker ROS ROS ED Constitutional Constitutional ED: Denies chills or fever(s) Eyes Eyes: Denies blurry vision or change in vision ENT ENT ED: Denies rhinorrhea or sore throat Cardiovascular Cardiovascular: Reports chest pain; Denies palpitations Respiratory/Chest Respiratory/Chest: Reports cough and dyspnea Gastrointestinal Gastrointestinal: Denies nausea or vomiting Genitourinary Genitourinary ED: Denies dysuria or hematuria Musculoskeletal Musculoskeletal: Denies back pain or neck pain Integumentary Denies abscess or rash Neurologic Neurologic: Denies headache(s) or weakness Allergic/Immunologi c Allergic/Immunologi c ED: Denies mouth swelling or urticaria EXAM Physical Exam Const Vital Signs: 10/26/24 09:11 10/26/24 09:11 10/26/24 09:52 Temperature 97 F L Temperature Source Temporal Pulse Rate 81 Respiratory Rate 14 Respiratory Effort Normal Respiratory Depth Normal Respiratory Pattern Normal Blood Pressure 172/85 H Blood Pressure Mean 114 Pulse Ox 98 Oxygen Delivery Method Room Air Room Air Room Air 10/26/24 11:15 10/26/24 13:00 Temperature Temperature Source Pulse Rate 67 64 Respiratory Rate 14 17 Respiratory Effort Respiratory Depth Respiratory Pattern Blood Pressure 147/82 H Blood Pressure Mean 98 Pulse Ox 96 92 Oxygen Delivery Method Room Air Positive well nourished and well developed General Appearance ED: well developed and NAD HEENT Reports moist mucous membranes Neck supple, no meningeal signs and no JVD Resp normal respiratory effort Auscultation: wheezes throughout Cardio regular rate and regular rhythm GI non-tender and non-distended Palpation: soft Neuro oriented x3, CN (more content not included)... Normal [facility] Eosinophil percentageOrdered By: Mitchell Stratton on 10-26-2024 Eosinophils/100 WBC (Bld) 5.6 % High 0-5 [facility] Erythrocyte distribution wid th ratioOrdered By: Mitchell Stratton on 10-26-2024 Erythrocyte distribution width (RBC) [Ratio] 13.3 % 11.6-14.6 [facility] Erythrocyte distribution wid th standard deviationOrdered By: Mitchell Stratton on 10-26-2024 Erythrocyte distribution width (RBC) [Ratio] 42.2 fl 35.1-43.9 [facility] Glomerular filtration rate ( GFR) estimation/1.73 sq m using serum, plasma, or whole bOrdered By: Mitchell Stratton on 10-26-2024 GFR/1.73 sq M.predicted among non-blacks MDRD (S/P/Bld) [Vol rate/Area] 93 mL/min/{1.73_m2} >60 [facility] Comment on above: mL/min/1.73m2 CKD-EP I Creatinine Equation (2020) Hematocrit Auto (Bld) [Volum e fraction]Ordered By: Mitchell Stratton on 10-26-2024 Hematocrit (Bld) [Volume fraction] 41.4 % 40-54 [facility] Hemoglobin measurementOrdere d By: Mitchell Stratton on 10-26-2024 Hemoglobin (Bld) [Mass/Vol] 14.2 g/dL 13.0-16.5 [facility] Immature granulocytes/100 WB C Auto (Bld)Ordered By: Mitchell Stratton on 10-26-2024 Immature granulocytes/100 WBC (Bld) 0.500 % 0.0-0.9 [facility] Comment on above: IG% - Immature Granu locytes (promyelocytes, myelocytes and metamyelocytes) > 1% indicates that a LEFT SHIFT is Present. L499.0042on 10-26-2024 Trop T High Sen 17 ng/L Normal <=22 [facility] Comment on above: Performed By: #### L 499.0042 #### [facility] [address] [place], [address] L499.0043on 10-26-2024 Trop T High Sen Normal <=22 [facility] Comment on above: Result Comment: Canc elled via OM: Order cancelled - Patient discharged Performed By: #### L 499.0043 #### [facility] [address] [place], [address] L501.4021on 10-26-2024 Trop T High Sen 20 ng/L Normal <=22 [facility] Comment on above: Performed By: #### L 500.2500, L100.0100, L501.4021 #### [facility] [address] [place], [address] MCV (mean corpuscular volume ) determinationOrdered By: Mitchell Stratton on 10-26-2024 MCV (RBC) [Entitic vol] 87.0 fL 80-94 [facility] Mean corpuscular hemoglobin (MCH) determinationOrdered By: Mitchell Stratton on 10-26-2024 MCH (RBC) [Entitic mass] 29.8 pg 27.0-32.0 [facility] Mean corpuscular hemoglobin concentration (MCHC) determinationOrdered By: Mitchell Stratton on 10-26-2024 MCHC (RBC) [Mass/Vol] 34.3 g/dL 32-36 [facility] Mean platelet volume determi nationOrdered By: Mitchell Stratton on 10-26-2024 Platelet mean volume (Bld) [Entitic vol] 9.8 fL 6.2-12.0 [facility] Monocyte percentageOrdered B y: Mitchell Stratton on 10-26-2024 Monocytes/100 WBC (Bld) 9.3 % 0-10 [facility] Neutrophil percentageOrdered By: Mitchell Stratton on 10-26-2024 Neutrophils/100 WBC (Bld) 57.3 % 47-70 [facility] Nucleated red blood cell per centageOrdered By: Mitchell Stratton on 10-26-2024 Nucleated RBC/100 WBC (Bld) [Ratio] 0 % 0-5 [facility] Platelet countOrdered By: Reese Stratton on 10-26-2024 Platelets (Bld) [#/Vol] 223 10*3/uL 150-450 [facility] Potassium measurement (mass/ volume)Ordered By: Mitchell Stratton on 10-26-2024 Potassium (Unsp spec) [Mass/Vol] 3.2 mmol/L Low 3.3-5.1 [facility] RBC Auto (Bld) [#/Vol]Ordere d By: Mitchell Stratton on 10-26-2024 RBC (Bld) [#/Vol] 4.76 10*6/uL 4.6-6.2 [facility] Serum creatinine measurement (mass/volume)Ordered By: Mitchell Stratton on 10-26-2024 Creatinine [Mass/Vol] 0.86 mg/dL 0.70-1.20 [facility] Serum glucose measurement (m ass/volume)Ordered By: Mitchell Stratton on 10-26-2024 Glucose [Mass/Vol] 164 mg/dL High 70-99 [facility] Serum or plasma calcium césar urement (mass/volume)Ordered By: Mitchell Stratton on 10-26-2024 Calcium [Mass/Vol] 9.2 mg/dL 7.6-11.0 [facility] Serum or plasma urea nitroge n measurement (mass/volume)Ordered By: Mitchell Stratton on 10-26-2024 Urea nitrogen [Mass/Vol] 21 mg/dL High 4-19 [facility] Sodium levelOrdered By: Mitchell Stratton on 10-26-2024 Sodium [Moles/Vol] 140 mmol/L 133-145 [facility] Troponin T.cardiac [Mass/vol ume] in Serum or Plasma by High sensitivity methodOrdered By: Mitchell Stratton on 10-26-2024 Troponin T.cardiac High sensitivity method [Mass/Vol] 17 ng/L <22 [facility] Troponin T.cardiac High sensitivity method [Mass/Vol] 20 ng/L <22 [facility] White blood cell (WBC) count Ordered By: Mitchell Stratton on 10-26-2024 WBC (Bld) [#/Vol] 9.8 10*3/uL 4.4-11.0 [facility] 10-18-2024 [facility] Office Visit (UCWSTR) ---- SRIDHAR MIJARES ([id number]) 1950 M Date Time Provider Department 10/18/24 9:00 AM JOSSY ALVARENGA [facility] During your visit today, we recorded the following information about you: Temperature Pulse Respiration Blood pressure 98.1 degrees 80/minute 16/minute 154/78 Weight 109 kg Jossy Alvarenga APRN.[facility] 10/18/2024 9:21 AM Signed [facility] Subjective Sridhar Mijares is a 73 year old male. Patient presents with: Chest Congestion: cough and wheezing x 2 weeks HPI Dyspnea and Cough: - Dyspnea and cough occur annually around the same time. - Dyspnea exacerbated by walking; requires inhaler use. - Reports chest congestion, but denies it is cardiac-related. - Denies current pneumonia; recent chest X-ray performed. - Symptoms improve with steroid use. - Uses albuterol sulfate nebulizer, but limits use due to tremors. - Recent travel to [place]; symptoms worsened during the trip. - Denies significant rhinorrhea; occasional nasal discharge with poor air quality. Asthma: - Diagnosed with asthma; history of allergies. - Underwent allergy testing last year with no significant findings. Cardiac History: - History of heart problems since 2006. - Recent myocardial infarction. Review of Systems Ears/Nose/Mouth/Thr oat: (-) sinus congestion Respiratory: (+) cough, (+) shortness of breath, (+) chest congestion, (+) wheezing Objective BP 154/78 Pulse 80 Temp 36.7 ?C (98.1 ?F) Resp 16 Wt 109 kg (240 lb 4.8 oz) SpO2 97% Physical Exam General: No acute distress. HEENT: Oropharynx without exudates, erythema, or lesions; tympanic membranes clear. Resp: Diffuse wheezing. {1. Moderate asthma with acute exacerbation, unspecified whether persistent (HCC) (J45.901) - Acute exacerbation with significant wheezing throughout lung chu on auscultation. - Initiated a 9-day prednisone taper: 40 mg daily for 3 days, 20 mg daily for 3 days, 10 mg daily for 3 days. - Prescription sent to patient's pharmacy. - Advised patient to monitor symptoms closely and return if condition worsens or if signs of pneumonia develop. and Recording using Tell[employer] software for draft documentation of the visit was discussed with the patient/authorized banking representative; all questions welcomed and answered. Patient/authorized banking representative agreed to proceed MDM Procedures Allergies As of Date: 10/18/2024 (No Known Allergies) Date Reviewed: 10/18/2024 Reviewed by: Brittany Gastelum MA - Fully Assessed Reason for Visit: Chest Congestion [236] Cmt: cough and wheezing x 2 weeks Visit Diagnosis:Moderate asthma with acute exacerbation, unspecified whether persistent (HCC) [J45.901] Order(s):predniSONE (DELTASONE) 10 mg tabletTake 4 tabs daily for 3 days, then 2 tabs daily for 3 days, then 1 tab daily for 3 days with food.Disp: 21 tabletRfl: 0 Prescriptions as of 10/18/2024 - amLODIPine (NORVASC) 10 mg tablet Take 10 mg by mouth once daily. - finasteride (PROSCAR) 5 mg tablet Take 5 mg by mouth once daily. - montelukast (SINGULAIR) 10 mg tablet Take 10 mg by mouth once daily. - multivit with iron,minerals (COMPLETE MULTIVITAMIN ORAL) Take by mouth. - albuterol (PROVENTIL) 2.5 mg /3 mL (0.083 %) nebulizer solution USE 3 ML VIA NEBULIZER EVERY 6 HOURS NEEDED FOR ASTHMA - MAGNESIUM CARBONATE ORAL Take by mouth. - predniSONE (DELTASONE) 10 mg tablet Take 4 tabs daily for 3 days, then 2 tabs daily for 3 days, then 1 tab daily for 3 days with food. - PRAVACHOL 10 MG TAB Take one(1) tablet daily. - LEXAPRO 10 MG TAB Take three tablets in the evening - ASPIRIN 81 MG TAB Take one (1) tablet daily . - NITRO-DUR 0.4 MG/HR TRANSDERM 24 HR PATCH Apply to extremity once per 24 hours. Problem List As Of Date: 10/18/2024 (None) Prescriptions ordered this encounter Disp Refills Start End PREDNISONE 10 MG TABLET 21 t* 0 10/18/2024 Sig: Take 4 tabs daily for 3 days, then 2 tabs daily for 3 days, then 1 tab daily for 3 days with food. Encounter Status:Closed by JOSSY ALVARENGA on 10/18/24 Normal [facility] Vital Signs Date Time Vital Sign Value Performing Clinician Cora pettity 10-26-2024 13:30-0400 Body temperature 98.3 [degF] [facility] 10-26-2024 13:30-0400 Diastolic blood pressure 79 mm[Hg] [facility] 10-26-2024 13:30-0400 Heart rate 64 /min [facility] 10-26-2024 13:30-0400 Respiratory rate 17 /min [facility] 10-26-2024 13:30-0400 SaO2% (BldA) [Mass fraction] 92 % [facility] 10-26-2024 13:30-0400 Systolic blood pressure 161 mm[Hg] [facility] 10-26-2024 09:11-0400 Body height 182.88 cm [facility] 10-26-2024 09:11-0400 Body mass index (BMI) [Ratio] 32.7 kg/m2 [facility] 10-26-2024 09:11-0400 Body weight 109.5 kg [facility] 10-18-2024 09:05-0400 Body temperature 98.1 [degF] Jossy Alvarenga APRN.COMMERCIAL ENGINEER Work Phone: [facility] 10-18-2024 09:05-0400 Body weight 109 kg Jossy Alvarenga APRN.CNP Work Phone: [facility] 10-18-2024 09:05-0400 Diastolic blood pressure 78 mm[Hg] Jossy Alvarenga APRN.COMMERCIAL ENGINEER Work Phone: [facility] 10-18-2024 09:05-0400 Heart rate 80 /min Jossy Alvarenga APRN.COMMERCIAL ENGINEER Work Phone: [facility] 10-18-2024 09:05-0400 Respiratory rate 16 /min Jossy Alvarenga APRN.COMMERCIAL ENGINEER Work Phone: [facility] 10-18-2024 09:05-0400 SaO2% (BldA) [Mass fraction] 97 % Jossy Alvarenga APRN.COMMERCIAL ENGINEER Work Phone: [facility] 10-18-2024 09:05-0400 Systolic blood pressure 154 mm[Hg] Jossy Alvarenga APRN.COMMERCIAL ENGINEER Work Phone: [facility] Encounters Encounter Date Encounter Type Care Provider Facility Start: 10-26-2024 End: 10-26-2024 Emergency department patient visit [facility] -Emergency Department Work Phone: Start: 10-26-2024 End: 10-26-2024 ambulatory JACKLYN BOWDEN Facility:[facility] Start: 10-26-2024 End: 10-26-2024 Patient encounter procedure Jacklyn Bowden APRN.COMMERCIAL ENGINEER Work Phone: [facility] Comment on above: SOB (shortness of br eath) (Primary Dx) Start: 10-18-2024 End: 10-18-2024 Patient encounter procedure Jossy Alvarenga APRN.COMMERCIAL ENGINEER Work Phone: [facility] Comment on above: Moderate asthma with acute exacerbation, unspecified whether persistent (HCC) Start: 10-18-2024 End: 10-18-2024 ambulatory JOSSY ALVARENGA Facility:[facility] Procedures Date Procedure Procedure Detail Performing Clinician Start: 10-26-2024 Estimated creatinine clearance [facility] Start: 10-26-2024 CT angiography of ch est with contrast [facility] Start: 01-21-2022 Lipid 1996 panel - S chelly or Plasma Jacklyn Bowden APRN.COMMERCIAL ENGINEER Work Phone: Start: 10-02-2005 Lipid 1996 panel - S chelly or Plasma Jossy Alvarenga APRN.COMMERCIAL ENGINEER Work Phone: Plan of Treatment Date Care Activity Detail Author Start: 12-07-2027 RSV Vaccine (1 - 1-dose 75+ series) RSV Vaccine (1 - 1-dose 75+ series) [facility] Start: 09-23-2027 Diabetes Screening Diabetes Screening [facility] Start: 01-21-2027 Lipid panel Lipid Screening [facility] Start: 12-26-2024 Influenza vaccination [facility] Start: 10-26-2024 [facility] Start: 10-26-2024 [facility] Start: 04-27-2024 Advance Directive Discussion Advance Directive Discussion [facility] Start: 04-27-2024 Medicare Advantage Annual Wellness Visit Medicare Advantage Annual Wellness Visit [facility] Start: 12-27-2023 Covid-19 Vaccine ( season) Covid-19 Vaccine ( season) [facility] Start: 10-02-2010 Lipid panel Lipid Screening [facility] Start: 2002 Pneumococcal Vaccine: 50+ (1 of 1 - PCV) Pneumococcal Vaccine: 50+ (1 of 1 - PCV) [facility] Start: 2002 Shingrix Vaccine (1 of 2) Shingrix Vaccine (1 of 2) [facility] Start: 1997 Screening for malignant neoplasm of colon [facility] Start: 12-07-1971 Urine microalbumin profile DTaP,Tdap,Td Vaccine (1 - Tdap) [facility] Start: 1970 Anxiety Screening Anxiety Screening [facility] Start: 1970 Depression Screening Depression Screening [facility] Start: 1970 Hepatitis C screening Hepatitis C Screening [facility] Start: 1950 Abdominal aortic aneurysm screening Abdominal Aortic Aneurysm Screening [facility] Patient Education ED Dyspnea ED MDI Use Spacer or None [facility] Work Phone: Immunizations Immunization Date Immunization Notes Care Provider Dallin vann 01-28-2021 influenza virus vacc ine, unspecified formulation Jacklyn Bowden APRN.JEREMY Work Phone: [facility] Payers Date Payer Category Payer Self-pay 2024 Medicare (Managed Care) [employer] [place] [employer] [id number] 2024 Medicare [id number] Private Health Insurance [id number] Unknown [id number] Social History Date Type Detail Facility Start: 10-26-2024 Tobacco smoking stat [facility] Ex-smoker [facility] History of tobacco use Current smoker [facility] History of tobacco use Cigarette Smoker [facility] Start: 10-02-2005 Alcoholic beverage intake Current drinker of alcohol (finding) [facility] Start: 1950 Sex assigned at Not on file [facility] Gender identity Not on file [facility] Start: 1950 Sex Assigned At Male [facility] Radiology Diagnostic study note 10-26-2024 Note Date & Type Note Facility 10-26-2024 Radiology Diagnostic study note [facility] Imaging Services [address] [place] [id number] CTA Chest W/WO Contrast MR#: [id number] Acct: [id number] Name: ALLISON MIJARES Rep #: [id number] : 1950 M 73 From: Marie Guzman MD PCP: OUT OF TOWN DOCTOR Status: REG ER Study:CTA Chest W/WO Contrast Date of Exam: 10/26/24 Exam# [id number] Ordering Dr: Mitchell Stratton DO PROCEDURE: CTA CHEST W/WO CONTRAST 10/26/2024 REASON FOR EXAM: DYSPNEA TECHNIQUE: CTA CHEST W/WO CONTRAST Multiplanar Sagittal and Coronal images were obtained. CONTRAST: 100 cc Isovue 370 One or more dose reduction techniques were used (e.g., Automated exposure control, adjustment of the mA and/or kV according to patient size, use of iterative reconstruction technique). RADIATION DOSE SUMMARY: DLP: 543.29 mGycm COMPARISON: None FINDINGS: Hardware: Sternotomy wires are noted the right thyroid lobe is heterogeneously enlarged. Lymph nodes: There is no pathologic adenopathy. Heart: Atherosclerotic calcifications are noted RV/LV Diameter Ratio: 0.8 Thoracic Aorta: Aortic calcifications are noted Pulmonary Vessels: Pulmonary artery Hounsfield units = 278. Most Proximal Level of Embolus (if embolus present): Lungs and Airways: There is no infiltrate or consolidation. There is no suspicious pulmonary nodule or mass. Pleura: There is no pneumothorax or effusion. Upper Abdomen: 2 cm cyst is noted in the left hepatic lobe. Bones: There is no acute bony abnormality. CT/CTA Chest W/WO Contrast IMPRESSION: The right thyroid lobe is heterogeneous and enlarged. Consider ultrasound correlation. There is no visible pulmonary embolus. Reading Location: [facility] CC: Dr. Mitchell Stratton, DO ~ Category Director: Signed [facility] Progress note 10-26-2024 Note Date & Type Note Facility 10-26-2024 Note HNO ID: [id number] Author: JACKLYN BOWDEN APRN.JEREMY Service: ? Author Type: Nurse Practitioner Type: Progress Notes Filed: 10/26/2024 09:01 Note Text: [facility] TRI[facility] NOTE: Sridhar Mijares is a 73 year old male who presents requesting testing for PE. States he has a history of this and was treated recently for bronchitis which did not help his chest pain and shortness of breath. He was seen 09/22/24 at [facility] ED for atypical chest pain. Patient is referred to [facility] for further evaluation and treatment-[facility] cannot order testing for PE. Jacklyn Bowden APRN.JEREMY [facility] History of Present illness Narrative 10-26-2024 Jacklyn Bowden APRN.JEREMY - 10/26/2024 8:54 AM EDT Note Date & Type Note Facility 10-26-2024 History of Presen t illness Narrative [facility] TRIAGE [facility]: Sridhar Mijares is a 73 year old male who presents requesting testing for PE. States he has a history of this and was treated recently for bronchitis which did not help his chest pain and shortness of breath. He was seen 09/22/24 at [facility] ED for atypical chest pain. Patient is referred to [facility] for further evaluation and treatment-[facility] cannot order testing for PE. Jacklyn Bowden APRN.COMMERCIAL ENGINEER documented in this encounter [facility] Progress note 10-18-2024 Note Date & Type Note Facility 10-18-2024 Note HNO ID: [id number] Author: JOSSY ALVARENGA APRN.COMMERCIAL ENGINEER Service: ? Author Type: Nurse Practitioner Type: Progress Notes Filed: 10/18/2024 09:21 Note Text: [facility] Subjective Sridhar Mijares is a 73 year old male. Patient presents with: Chest Congestion: cough and wheezing x 2 weeks HPI Dyspnea and Cough: - Dyspnea and cough occur annually around the same time. - Dyspnea exacerbated by walking; requires inhaler use. - Reports chest congestion, but denies it is cardiac-related. - Denies current pneumonia; recent chest X-ray performed. - Symptoms improve with steroid use. - Uses albuterol sulfate nebulizer, but limits use due to tremors. - Recent travel to [place]; symptoms worsened during the trip. - Denies significant rhinorrhea; occasional nasal discharge with poor air quality. Asthma: - Diagnosed with asthma; history of allergies. - Underwent allergy testing last year with no significant findings. Cardiac History: - History of heart problems since 2006. - Recent myocardial infarction. Review of Systems Ears/Nose/Mouth/Throat: (-) sinus congestion Respiratory: (+) cough, (+) shortness of breath, (+) chest congestion, (+) wheezing Objective BP 154/78 Pulse 80 Temp 36.7 ?C (98.1 ?F) Resp 16 Wt 109 kg (240 lb 4.8 oz) SpO2 97% Physical Exam General: No acute distress. HEENT: Oropharynx without exudates, erythema, or lesions; tympanic membranes clear. Resp: Diffuse wheezing. {1. Moderate asthma with acute exacerbation, unspecified whether persistent (HCC) (J45.901) - Acute exacerbation with significant wheezing throughout lung chu on auscultation. - Initiated a 9-day prednisone taper: 40 mg daily for 3 days, 20 mg daily for 3 days, 10 mg daily for 3 days. - Prescription sent to patient's pharmacy. - Advised patient to monitor symptoms closely and return if condition worsens or if signs of pneumonia develop. and Recording using TellFi software for draft documentation of the visit was discussed with the patient/authorized banking representative; all questions welcomed and answered. Patient/authorized banking representative agreed to proceed MDM Procedures [facility] History of Present illness Narrative 10-18-2024 Jossy Alvarenga APRN.COMMERCIAL ENGINEER - 10/18/2024 9:21 AM EDT Note Date & Type Note Facility 10-18-2024 History of Presen t illness Narrative [facility] Subjective Sridhar Mijares is a 73 year old male. Patient presents with: Chest Congestion: cough and wheezing x 2 weeks HPI Dyspnea and Cough: - Dyspnea and cough occur annually around the same time. - Dyspnea exacerbated by walking; requires inhaler use. - Reports chest congestion, but denies it is cardiac-related. - Denies current pneumonia; recent chest X-ray performed. - Symptoms improve with steroid use. - Uses albuterol sulfate nebulizer, but limits use due to tremors. - Recent travel to [place]; symptoms worsened during the trip. - Denies significant rhinorrhea; occasional nasal discharge with poor air quality. Asthma: - Diagnosed with asthma; history of allergies. - Underwent allergy testing last year with no significant findings. Cardiac History: - History of heart problems since 2006. - Recent myocardial infarction. Review of Systems Ears/Nose/Mouth/Throat: (-) sinus congestion Respiratory: (+) cough, (+) shortness of breath, (+) chest congestion, (+) wheezing Objective BP 154/78 Pulse 80 Temp 36.7 C (98.1 F) Resp 16 Wt 109 kg (240 lb 4.8 oz) SpO2 97% Physical Exam General: No acute distress. HEENT: Oropharynx without exudates, erythema, or lesions; tympanic membranes clear. Resp: Diffuse wheezing. {1. Moderate asthma with acute exacerbation, unspecified whether persistent (HCC) (J45.901) - Acute exacerbation with significant wheezing throughout lung chu on auscultation. - Initiated a 9-day prednisone taper: 40 mg daily for 3 days, 20 mg daily for 3 days, 10 mg daily for 3 days. - Prescription sent to patient's pharmacy. - Advised patient to monitor symptoms closely and return if condition worsens or if signs of pneumonia develop. and Recording using ambient [employer] software for draft documentation of the visit was discussed with the patient/authorized banking representative; all questions welcomed and answered. Patient/authorized banking representative agreed to proceed MDM Procedures documented in this encounter [facility] Evaluation note Note Date & Type Note Facility Evaluation note Diagnosis Moderate asthma with acute exacerbation, unspecified whether persistent (HCC) documented in this encounter [facility] Evaluation note Note Date & Type Note Facility Evaluation note No assessment information availa ble [facility] Work Phone: Evaluation note Note Date & Type Note Facility Evaluation note Diagnosis SOB (shortness of breath)- Primary Shortness of breath documented in this encounter [facility] Reason for referral (narrative) Note Date & Type Note Facility Reason for referral (narrative) No reason for referral information available [facility] Work Phone: Chief Complaint and Reason for Visit Chief Complaint Admit Date PE October 26, 2024 9:11a m Advance Directives No Advanced Directives Records Found Advance Directive Response Recorded Date/ Time Do you have a Healthcare Power of Client Experience Administrator? No October 26, 2024 9:11am Summary Purpose Family History No Family History Records FoundNo Family History Records Found Additional Source Comments Source Comments (unrecognize d section and content) In the event this informatio n is protected by the Federal Confidentiality of Alcohol and Drug Abuse Patient Records regulations: The Federal rules restrict any use of the information to criminally investigate or prosecute any alcohol or drug abuse [facility] event this information is protected by the Federal Confidentiality of Alcohol and Drug Abuse Patient Records regulations: The Federal rules restrict any use of the information to criminally investigate or prosecute any alcohol or drug abuse patient.[facility] Reason for Visit (unrecogniz ed section and content) Reason Comments Chest Congestion cough and wheezing x 2 weeks Care Teams (unrecognized sec tion and content) Team Status: Active Member Role/Relationship Status Dates Out of [facility] Doctor Primary Care Provider Active Team Status: Inactive Member Role/Relationship Status Dates Out of [facility] Doctor Primary Care Provider Active Start: October 26, 2024 End: October 26, 2024 Dr. Mitchell Stratton , DO Emergency Provider Active Start: October 26, 2024 End: October 26, 2024 Goals (unrecognized section and content) Goals may be documented in a n alternate section (unrecognized sect ion and content) No Status Records FoundNo Status Records Found INFORMATION SOURCE (unrecogn ized section and content) DATE CREATED AUTHOR 10/28/2024 [facility] DATE CREATED AUTHOR AUTHOR'S SHAMA BINGHAM 11/05/2024 [facility] FOR RECORDS PERTAINING TO PATIENTS WHO ARE OR HAVE BEEN ENROLLED IN A CHEMICAL DEPENDENCY/SUBSTANCEABUSE PROGRAM, SOME INFORMATION MAY BE OMITTED. This clinical summary was aggregated from multiple sources. Caution should be exercised in using it in the provision of clinical care. This summary normalizes information from multiple sources, and as a consequence, information in this document may materially change the coding, format and clinical context of patient data. In addition, data may be omitted in some cases. CLINICAL DECISIONS SHOULD BE BASED ON THE PRIMARY CLINICAL RECORDS. [employer] provides no warranty or guarantee of the accuracy or completeness of information in this document.
--- OUTSIDE RECORDS SUMMARY | 2024-11-10 19:50 | XMS RPT_ITS | CCD ---
Author Organization [facility] Inform ion Partnership [facility] Care Team Providers Care Tankroom Tender Name Role Phone Unavailable Primary Care Provider Stevie Oseguera Doctor, Out of Primary Care Provider Dr. Mitchell Alicia DO Emergency Provider JACKLYN BOWDEN Attending Unavailable JOSSY ALVARENGA Attending Unavailable Mitchell Stratton Attending Unavailable Ana Rosa Doctor, Out of Primary Care Unavailable Medications Current Medications Medication Drug Class(es) Dates Sig (Normalized) Sig (Original) [id number] 200 actuat albuterol 0.09 mg/actuat metered dose [...] Coronary arteriosclerosis; Translations: [Atherosclerotic heart disease of [place] coronary artery without angina pectoris] 10-26-2024 Chronic [...] Auto (Unsp spec) [#/Vol] 2.64 10*3/uL 0.83-4.51 [facility] Absolute neutrophil countOrd ered By: Mitchell Stratton on 10-26-2024 Neutrophils (Bld) [#/Vol] 5.6 10*3/uL 2.0-7.7 [facility] Anion gap in Serum or Plasma Ordered By: Mitchell Stratton on 10-26-2024 Anion gap [Moles/Vol] 10 mmol/L 5-15 [facility] Automated lymphocyte count a s percentage of total leukocytesOrdered By: Mitchell Stratton on 10-26-2024 Lymphocytes/100 WBC Auto (Unsp spec) 26.8 % 19-41 [facility] BUN/creatinine ratioOrdered By: Mitchell Stratton on 10-26-2024 Urea nitrogen/Creatinine [Mass ratio] 25.0 mg/mg High - [facility] Basic Metabolic Profile (BMP )on 10-26-2024 BUN/CRE 25.0 RATIO High - [facility] Comment on above: Performed By: #### L 500.2500, L100.0100, L501.4021 #### [facility] [address] [place], [address] Calcium [Mass/Vol] 9.2 mg/dL Normal 7.6-11.0 [facility] Comment on above: Performed By: #### L 500.2500, L100.0100, L501.4021 #### [facility] [address] [place], [address] Chloride [Moles/Vol] 100 mmol/L Normal 98-108 [facility] Comment on above: Performed By: #### L 500.2500, L100.0100, L501.4021 #### [facility] [address] [place], [address] CO2 [Moles/Vol] 29.3 mmol/L Normal 21.0-32.0 [facility] Comment on above: Performed By: #### L 500.2500, L100.0100, L501.4021 #### [facility] [address] [place], [address] Creatinine [Mass/Vol] 0.86 mg/dL Normal 0.70-1.20 [facility] Comment on above: Performed By: #### L 500.2500, L100.0100, L501.4021 #### [facility] [address] [place], [address] ECRCL 100.69 ml/min Normal 50-250 [facility] Comment on above: Performed By: #### L 500.2500, L100.0100, L501.4021 #### [facility] [address] [place], [address] GAP 10 Normal 5-15 [facility] Comment on above: Performed By: #### L 500.2500, L100.0100, L501.4021 #### [facility] [address] [place], [address] GFR/1.73 sq M.predicted among non-blacks MDRD (S/P/Bld) [Vol rate/Area] 93 mL/min/{1.73_m2} Normal >60 [facility] Comment on above: Result Comment: mL/m in/1.73m2 CKD-EPI Creatinine Equation (2020) Performed By: #### L 500.2500, L100.0100, L501.4021 #### [facility] [address] [place], [address] Glucose [Mass/Vol] 164 mg/dL High 70-99 [facility] Comment on above: Performed By: #### L 500.2500, L100.0100, L501.4021 #### [facility] [address] [place], [address] Potassium [Moles/Vol] 3.2 mmol/L Low 3.3-5.1 [facility] Comment on above: Performed By: #### L 500.2500, L100.0100, L501.4021 #### [facility] [address] [place], [address] Sodium [Moles/Vol] 140 mmol/L Normal 133-145 [facility] Comment on above: Performed By: #### L 500.2500, L100.0100, L501.4021 #### [facility] [address] [place], [address] Urea nitrogen [Mass/Vol] 21 mg/dL High 4-19 [facility] Comment on above: Performed By: #### L 500.2500, L100.0100, L501.4021 #### [facility] [address] [place], [address] Basophil percentageOrdered B y: Mitchellrhonda Stratton on 10-26-2024 Basophils/100 WBC (Bld) 0.5 % 0-1 [facility] CBC W/Diff, Automatedon Absolute Lymph 2.64 X10 3/uL Normal 0.83-4.51 [facility] Comment on above: Performed By: #### L 500.2500, L100.0100, L501.4021 #### [facility] [address] [place], [address] Absolute Neut 5.6 X10 3/uL Normal 2.0-7.7 [facility] Comment on above: Performed By: #### L 500.2500, L100.0100, L501.4021 #### [facility] [address] [place], [address] Basophils/100 WBC (Bld) 0.5 % Normal 0-1 [facility] Comment on above: Performed By: #### L 500.2500, L100.0100, L501.4021 #### [facility] [address] [place], [address] Eosinophils/100 WBC (Bld) 5.6 % High 0-5 [facility] Comment on above: Performed By: #### L 500.2500, L100.0100, L501.4021 #### [facility] [address] [place], [address] Erythrocyte distribution width (RBC) [Ratio] 13.3 % Normal 11.6-14.6 [facility] Comment on above: Performed By: #### L 500.2500, L100.0100, L501.4021 #### [facility] [address] [place], [address] Hematocrit (Bld) [Volume fraction] 41.4 % Normal 40-54 [facility] Comment on above: Performed By: #### L 500.2500, L100.0100, L501.4021 #### [facility] [address] [place], [address] Hemoglobin (Bld) [Mass/Vol] 14.2 g/dL Normal 13.0-16.5 [facility] Comment on above: Performed By: #### L 500.2500, L100.0100, L501.4021 #### [facility] [address] [place], [address] IG% 0.500 Normal 0.0-0.9 [facility] Comment on above: Result Comment: IG% - Immature Granulocytes (promyelocytes, myelocytes and metamyelocytes) > 1% indicates that a LEFT SHIFT is Present. Performed By: #### L 500.2500, L100.0100, L501.4021 #### [facility] [address] [place], [address] Lymphocytes/100 WBC (Bld) 26.8 % Normal 19-41 [facility] Comment on above: Performed By: #### L 500.2500, L100.0100, L501.4021 #### [facility] [address] [place], [address] MCH (RBC) [Entitic mass] 29.8 pg Normal 27.0-32.0 [facility] Comment on above: Performed By: #### L 500.2500, L100.0100, L501.4021 #### [facility] [address] [place], [address] MCHC (RBC) [Mass/Vol] 34.3 g/dL Normal 32-36 [facility] Comment on above: Performed By: #### L 500.2500, L100.0100, L501.4021 #### [facility] [address] [place], [address] MCV (RBC) [Entitic vol] 87.0 fL Normal 80-94 [facility] Comment on above: Performed By: #### L 500.2500, L100.0100, L501.4021 #### [facility] [address] [place], [address] Monocytes/100 WBC (Bld) 9.3 % Normal 0-10 [facility] Comment on above: Performed By: #### L 500.2500, L100.0100, L501.4021 #### [facility] [address] [place], [address] Neutrophils/100 WBC (Bld) 57.3 % Normal 47-70 [facility] Comment on above: Performed By: #### L 500.2500, L100.0100, L501.4021 #### [facility] [address] [place], [address] Nucleated RBC (Bld) [#/Vol] 0 10*3/uL Normal 0-5 [facility] Comment on above: Performed By: #### L 500.2500, L100.0100, L501.4021 #### [facility] [address] [place], [address] Platelet mean volume (Bld) [Entitic vol] 9.8 fL Normal 6.2-12.0 [facility] Comment on above: Performed By: #### L 500.2500, L100.0100, L501.4021 #### [facility] [address] [place], [address] Platelets (Bld) [#/Vol] 223 10*3/uL Normal 150-450 [facility] Comment on above: Performed By: #### L 500.2500, L100.0100, L501.4021 #### [facility] [address] [place], [address] RBC (Bld) [#/Vol] 4.76 10*6/uL Normal 4.6-6.2 [facility] Comment on above: Performed By: #### L 500.2500, L100.0100, L501.4021 #### [facility] [address] [place], [address] RDW SD 42.2 fl Normal 35.1-43.9 [facility] Comment on above: Performed By: #### L 500.2500, L100.0100, L501.4021 #### [facility] [address] [place], [address] WBC (Bld) [#/Vol] 9.8 10*3/uL Normal 4.4-11.0 [facility] Comment on above: Performed By: #### L 500.2500, L100.0100, L501.4021 #### [facility] [address] [place], [address] CNOVon 10-26-2024 [facility] ---- SRIDHAR MIJARES ([id number]) 1950 M Date Time Provider Department 10/26/24 8:45 AM JACKLYN BOWDEN [facility] During your visit today, we recorded the following information about you: Jacklyn Bowden APRN.MANAGER FUND 10/26/2024 9:01 AM Signed [facility] TRIAGE NOTE: Sridharmando Mijares is a 73 year old male who presents requesting testing for PE. States he has a history of this and was treated recently for bronchitis which did not help his chest pain and shortness of breath. He was seen 09/22/24 at [facility] ED for atypical chest pain. Patient is referred to [facility] for further evaluation and treatment-[facility] cannot order testing for PE. Jacklyn Bowden APRN.MANAGER FUND Allergies As of Date: 10/26/2024 (No Known [...] Encounter Status:Closed by JACKLYN BOWDEN on 10/26/24 [facility] CTA Chest W/WO Contraston CTA Chest W/WO Contrast [facility] Imaging Services [address] [facility] [place], [place] [address] CTA Chest W/WO Contrast MR#: [id number] Acct: [id number] Name: ALLISON MIJARES Rep #: [id number] : 1950 M 73 From: Mirza Guzman MD PCP: OUT OF TOWN DOCTOR Status: REG ER Study: CTA Chest W/WO Contrast Date of Exam: 10/26/24 Exam# [id number] Ordering Dr: Mitchell Stratton DO PROCEDURE: CTA [...] Location: [facility] CC: Dr. Mitchell Stratton DO Liner Machine Operator: Signed Normal [facility] Carbon dioxide, total [Moles /volume] in Central venous bloodOrdered By: Mitchell Stratton on 10-26-2024 CO2 [Moles/Vol] 29.3 mmol/L 21.0-32.0 [facility] Chloride assayOrdered By: Reese Stratton on 10-26-2024 Chloride [Moles/Vol] 100 mmol/L 98-108 [facility] Emergency Department Summary on 10-26-2024 Emergency Department Summary [facility] Medical Records Department [address] [place] [address] Emergency Department Summary 10/26/24 MR#: [id number] Acct: [id number] Name: ALLISON MIJARES Rep #: [id number] : 1950 73 From: Mitchell Stratton DO [...] PE Risk Factors: Positive for Recent travel [facility] Medical History (Updated 10/26/24 @ 13:20 by [...] x3, CN (more content not included)... Normal [facility] Eosinophil percentageOrdered By: Mitchell Stratton on 10-26-2024 Eosinophils/100 WBC (Bld) 5.6 % High 0-5 [facility] Erythrocyte distribution wid th ratioOrdered By: Mitchell Stratton on 10-26-2024 Erythrocyte distribution width (RBC) [Ratio] 13.3 % 11.6-14.6 [facility] Erythrocyte distribution wid th standard deviationOrdered By: Mitchell Stratton on 10-26-2024 Erythrocyte distribution width (RBC) [Ratio] 42.2 fl 35.1-43.9 [facility] Glomerular filtration rate ( GFR) estimation/1.73 sq m using serum, plasma, or whole bOrdered By: Mitchell Stratton on 10-26-2024 GFR/1.73 sq M.predicted among non-blacks MDRD (S/P/Bld) [Vol rate/Area] 93 mL/min/{1.73_m2} >60 [facility] Comment on above: mL/min/1.73m2 CKD-EP I Creatinine Equation (2020) Hematocrit Auto (Bld) [Volum e fraction]Ordered By: Mitchell Stratton on 10-26-2024 Hematocrit (Bld) [Volume fraction] 41.4 % 40-54 [facility] Hemoglobin measurementOrdere d By: Mitchell Stratton on 10-26-2024 Hemoglobin (Bld) [Mass/Vol] 14.2 g/dL 13.0-16.5 [facility] Immature granulocytes/100 WB C Auto (Bld)Ordered By: Mitchell Stratton on 10-26-2024 Immature granulocytes/100 WBC (Bld) 0.500 % 0.0-0.9 [facility] Comment on above: IG% - Immature Granu locytes (promyelocytes, myelocytes and metamyelocytes) > 1% indicates that a LEFT SHIFT is Present. L499.0042on 10-26-2024 Trop T High Sen 17 ng/L Normal <=22 [facility] Comment on above: Performed By: #### L 499.0042 #### [facility] [address] [place], [address] L499.0043on 10-26-2024 Trop T High Sen Normal <=22 [facility] Comment on above: Result Comment: Canc elled via OM: Order cancelled - Patient discharged Performed By: #### L 499.0043 #### [facility] [address] [place], [address] L501.4021on 10-26-2024 Trop T High Sen 20 ng/L Normal <=22 [facility] Comment on above: Performed By: #### L 500.2500, L100.0100, L501.4021 #### [facility] [address] [place], [address] MCV (mean corpuscular volume ) determinationOrdered By: Mitchell Stratton on 10-26-2024 MCV (RBC) [Entitic vol] 87.0 fL 80-94 [facility] Mean corpuscular hemoglobin (MCH) determinationOrdered By: Mitchell Stratton on 10-26-2024 MCH (RBC) [Entitic mass] 29.8 pg 27.0-32.0 [facility] Mean corpuscular hemoglobin concentration (MCHC) determinationOrdered By: Mitchell Stratton on 10-26-2024 MCHC (RBC) [Mass/Vol] 34.3 g/dL 32-36 [facility] Mean platelet volume determi nationOrdered By: Mitchell Stratton on 10-26-2024 Platelet mean volume (Bld) [Entitic vol] 9.8 fL 6.2-12.0 [facility] Monocyte percentageOrdered B y: Mitchell Stratton on 10-26-2024 Monocytes/100 WBC (Bld) 9.3 % 0-10 [facility] Neutrophil percentageOrdered By: Micthell Stratton on 10-26-2024 Neutrophils/100 WBC (Bld) 57.3 % 47-70 [facility] Nucleated red blood cell per centageOrdered By: Mitchell Stratton on 10-26-2024 Nucleated RBC/100 WBC (Bld) [Ratio] 0 % 0-5 [facility] Platelet countOrdered By: Reese Stratton on 10-26-2024 Platelets (Bld) [#/Vol] 223 10*3/uL 150-450 [facility] Potassium measurement (mass/ volume)Ordered By: Mitchell Stratton on 10-26-2024 Potassium (Unsp spec) [Mass/Vol] 3.2 mmol/L Low 3.3-5.1 [facility] RBC Auto (Bld) [#/Vol]Ordere d By: Mitchell Stratton on 10-26-2024 RBC (Bld) [#/Vol] 4.76 10*6/uL 4.6-6.2 [facility] Serum creatinine measurement (mass/volume)Ordered By: Mitchell Stratton on 10-26-2024 Creatinine [Mass/Vol] 0.86 mg/dL 0.70-1.20 [facility] Serum glucose measurement (m ass/volume)Ordered By: Mitchell Stratton on 10-26-2024 Glucose [Mass/Vol] 164 mg/dL High 70-99 [facility] Serum or plasma calcium césar urement (mass/volume)Ordered By: Mitchell Stratton on 10-26-2024 Calcium [Mass/Vol] 9.2 mg/dL 7.6-11.0 [facility] Serum or plasma urea nitroge n measurement (mass/volume)Ordered By: Mitchell Stratton on 10-26-2024 Urea nitrogen [Mass/Vol] 21 mg/dL High 4-19 [facility] Sodium levelOrdered By: Mitchell Stratton on 10-26-2024 Sodium [Moles/Vol] 140 mmol/L 133-145 [facility] Troponin T.cardiac [Mass/vol ume] in Serum or Plasma by High sensitivity methodOrdered By: Mitchell Stratton on 10-26-2024 Troponin T.cardiac High sensitivity method [Mass/Vol] 17 ng/L <22 [facility] Troponin T.cardiac High sensitivity method [Mass/Vol] 20 ng/L <22 [facility] White blood cell (WBC) count Ordered By: Mitchell Stratton on 10-26-2024 WBC (Bld) [#/Vol] 9.8 10*3/uL 4.4-11.0 [facility] 10-18-2024 [facility] Office Visit ([facility]) ---- SRIDHAR MIJARES ([id number]) 1950 M Date Time Provider Department 10/18/24 9:00 AM JOSSY ALVARENGA [facility] During your visit today, we recorded the following information about you: Temperature Pulse Respiration Blood pressure 98.1 degrees 80/minute 16/minute 154/78 Weight 109 kg Jossy Alvarenga APRN.[facility] 10/18/2024 9:21 AM Signed [facility] Subjective Sridhar Mijares is a [...] due to tremors. - Recent travel to [place]; symptoms worsened during the trip. - Denies [...] signs of pneumonia develop. and Recording using FittingRoom software for draft documentation of the visit was discussed with the patient/authorized players club representative; all questions welcomed and answered. Patient/authorized players club representative agreed to proceed MDM Procedures Allergies [...] Status:Closed by JOSSY ALVARENGA on 10/18/24 Normal [facility] Vital Signs Date Time Vital Sign Value Performing Clinician Cora pettity 10-26-2024 13:30-0400 Body temperature 98.3 [degF] [facility] 10-26-2024 13:30-0400 Diastolic blood pressure 79 mm[Hg] [facility] 10-26-2024 13:30-0400 Heart rate 64 /min [facility] 10-26-2024 13:30-0400 Respiratory rate 17 /min [facility] 10-26-2024 13:30-0400 SaO2% (BldA) [Mass fraction] 92 % [facility] 10-26-2024 13:30-0400 Systolic blood pressure 161 mm[Hg] [facility] 10-26-2024 09:11-0400 Body height 182.88 cm [facility] 10-26-2024 09:11-0400 Body mass index (BMI) [Ratio] 32.7 kg/m2 [facility] 10-26-2024 09:11-0400 Body weight 109.5 kg [facility] 10-18-2024 09:05-0400 Body temperature 98.1 [degF] Jossy Alvarenga APRN.MANAGER FUND Work Phone: [facility] 10-18-2024 09:05-0400 Body weight 109 kg Jossy Alvarenga APRN.CNP Work Phone: [facility] 10-18-2024 09:05-0400 Diastolic blood pressure 78 mm[Hg] Jossy Alvarenga APRN.MANAGER FUND Work Phone: [facility] 10-18-2024 09:05-0400 Heart rate 80 /min Jossy Alvarenga APRN.MANAGER FUND Work Phone: [facility] 10-18-2024 09:05-0400 Respiratory rate 16 /min Jossy Alvarenga APRN.MANAGER FUND Work Phone: [facility] 10-18-2024 09:05-0400 SaO2% (BldA) [Mass fraction] 97 % Jossy Alvarenga APRN.MANAGER FUND Work Phone: [facility] 10-18-2024 09:05-0400 Systolic blood pressure 154 mm[Hg] Jossy Alvarenga APRN.MANAGER FUND Work Phone: [facility] Encounters Encounter Date Encounter Type Care Provider Facility Start: 10-26-2024 End: 10-26-2024 Emergency department patient visit [facility] -Emergency Department Work Phone: Start: 10-26-2024 End: 10-26-2024 ambulatory JACKLYN BOWDEN Facility:[facility] Start: 10-26-2024 End: 10-26-2024 Patient encounter procedure Jacklyn Bowden APRN.MANAGER FUND Work Phone: [place] [facility] Comment on above: SOB (shortness of br eath) (Primary Dx) Start: 10-18-2024 End: 10-18-2024 Patient encounter procedure Jossy Alvarenga APRN.MANAGER FUND Work Phone: [place] [facility] Comment on above: Moderate asthma with acute exacerbation, unspecified whether persistent (HCC) Start: 10-18-2024 End: 10-18-2024 ambulatory JOSSY ALVARENGA Facility:[facility] Procedures Date Procedure Procedure Detail Performing Clinician Start: 10-26-2024 Estimated creatinine clearance [facility] Start: 10-26-2024 CT angiography of ch est with contrast [facility] Start: 01-21-2022 Lipid 1996 panel - S chelly or Plasma Jacklyn Bowden APRN.MANAGER FUND Work Phone: Start: 10-02-2005 Lipid 1996 panel - S chelly or Plasma Jossy Alvarenga APRN.MANAGER FUND Work Phone: Plan of Treatment Date Care Activity Detail Author Start: 12-07-2027 RSV Vaccine (1 - 1-dose 75+ series) RSV Vaccine (1 - 1-dose 75+ series) [facility] Start: 09-23-2027 Diabetes Screening Diabetes Screening [facility] Start: 01-21-2027 Lipid panel Lipid Screening [facility] Start: 12-26-2024 Influenza vaccination [facility] Start: 10-26-2024 [facility] Start: 10-26-2024 [facility] Start: 04-27-2024 Advance Directive Discussion Advance Directive Discussion [facility] Start: 04-27-2024 Medicare Advantage Annual Wellness Visit Medicare Advantage Annual Wellness Visit [facility] Start: 12-27-2023 Covid-19 Vaccine ( season) Covid-19 Vaccine ( season) [facility] Start: 10-02-2010 Lipid panel Lipid Screening [facility] Start: 2002 Pneumococcal Vaccine: 50+ (1 of 1 - PCV) Pneumococcal Vaccine: 50+ (1 of 1 - PCV) [facility] Start: 2002 Shingrix Vaccine (1 of 2) Shingrix Vaccine (1 of 2) [facility] Start: 1997 Screening for malignant neoplasm of colon [facility] Start: 12-07-1971 Urine microalbumin profile DTaP,Tdap,Td Vaccine (1 - Tdap) [facility] Start: 1970 Anxiety Screening Anxiety Screening [facility] Start: 1970 Depression Screening Depression Screening [facility] Start: 1970 Hepatitis C screening Hepatitis C Screening [facility] Start: 1950 Abdominal aortic aneurysm screening Abdominal Aortic Aneurysm Screening [facility] Patient Education ED Dyspnea ED MDI Use Spacer or None [facility] Work Phone: Immunizations Immunization Date Immunization Notes Care Provider Dallin vann 01-28-2021 influenza virus vacc ine, unspecified formulation Jacklyn Bowden APRN.JEREMY Work Phone: [facility] Payers Date Payer Category Payer Self-pay 2024 Medicare (Managed Care) [employer] [place] [id number] 2024 Medicare [id number] Private Health Insurance [id number] Unknown [id number] Social History Date Type Detail Facility Start: 10-26-2024 Tobacco smoking stat [facility] Ex-smoker [facility] History of tobacco use Current smoker [facility] History of tobacco use Cigarette Smoker [facility] Start: 10-02-2005 Alcoholic beverage intake Current drinker of alcohol (finding) [facility] Start: 1950 Sex assigned at Not on file C [facility] Gender identity Not on file [facility] Start: 1950 Sex Assigned At Male [facility] Radiology Diagnostic study note 10-26-2024 Note Date & Type Note Facility 10-26-2024 Radiology Diagnostic study note [facility] Imaging Services [address] [place] [id number] CTA Chest W/WO Contrast MR#: [id number] Acct: [id number] Name: ALLISON MIJARES Rep #: [id number] : 1950 M 73 From: Marie Guzman MD PCP: OUT OF TOWN DOCTOR Status: REG ER Study:CTA Chest W/WO Contrast Date of Exam: 10/26/24 Exam# [id number] Ordering Dr: Mitchell Stratton DO PROCEDURE: CTA [...] [facility] CC: Dr. Mitchell Stratton, DO ~ Liner Machine Operator: Signed [facility] Progress note 10-26-2024 Note Date & Type Note Facility 10-26-2024 Note HNO ID: [id number] Author: JACKLYN BOWDEN APRN.JEREMY Service: ? Author [...] of breath. He was seen 09/22/24 at [facility] ED for atypical chest pain. Patient is referred to [facility] for further evaluation and treatment-[facility] cannot order testing for PE. Jacklyn Bowden APRN.JEREMY [facility] History of Present illness Narrative 10-26-2024 Jacklyn [...] of breath. He was seen 09/22/24 at [facility] ED for atypical chest pain. Patient is referred to [facility] for further evaluation and treatment-[facility] cannot order testing for PE. Jacklyn Bowden APRN.MANAGER FUND documented in this encounter [facility] Progress note 10-18-2024 Note Date & Type Note Facility 10-18-2024 Note HNO ID: [id number] Author: JOSSY ALVARENGA APRN.MANAGER FUND Service: ? Author Type: Nurse Practitioner Type: [...] due to tremors. - Recent travel to [place]; symptoms worsened during the trip. - Denies [...] signs of pneumonia develop. and Recording using [employer] software for draft documentation of the visit was discussed with the patient/authorized players club representative; all questions welcomed and answered. Patient/authorized players club representative agreed to proceed MDM Procedures [facility] History of Present illness Narrative 10-18-2024 Jossy Alvarenga APRN.MANAGER FUND - 10/18/2024 9:21 AM EDT Note Date [...] due to tremors. - Recent travel to [place]; symptoms worsened during the trip. - Denies [...] of pneumonia develop. and Recording using ambient [employer] software for draft documentation of the visit was discussed with the patient/authorized players club representative; all questions welcomed and answered. Patient/authorized players club representative agreed to proceed MDM Procedures documented in this encounter [facility] Evaluation note Note Date & Type Note Facility Evaluation note Diagnosis Moderate asthma with acute exacerbation, unspecified whether persistent (HCC) documented in this encounter [facility] Evaluation note Note Date & Type Note Facility Evaluation note No assessment information availa ble [facility] Work Phone: Evaluation note Note Date & Type Note Facility Evaluation note Diagnosis SOB (shortness of breath)- Primary Shortness of breath documented in this encounter [facility] Reason for referral (narrative) Note Date & Type Note Facility Reason for referral (narrative) No reason for referral information available [facility] Work Phone: Chief Complaint and Reason for Visit Chief Complaint Admit Date PE October 26, 2024 9:11a m Advance Directives No Advanced Directives Records Found Advance Directive Response Recorded Date/ Time Do you have a Healthcare Power of Quality Assurance Supervisor Chassis? No October 26, 2024 9:11am Summary Purpose [...] or prosecute any alcohol or drug abuse patient.[facility] the event this information is protected by the Federal Confidentiality of Alcohol and Drug Abuse Patient Records regulations: The Federal rules restrict any use of the information to criminally investigate or prosecute any alcohol or drug abuse patient.[facility] Reason for Visit (unrecogniz ed section and content) Reason Comments Chest Congestion cough and wheezing x 2 weeks Care Teams (unrecognized sec tion and content) Team Status: Active Member Role/Relationship Status Dates Out of [facility] Doctor Primary Care Provider Active Team Status: Inactive Member Role/Relationship Status Dates Out of [facility] Doctor Primary Care Provider Active Start: October [...] section and content) DATE CREATED AUTHOR 10/28/2024 [facility] DATE CREATED AUTHOR AUTHOR'S SHAMA BINGHAM 11/05/2024 [facility] FOR RECORDS PERTAINING TO PATIENTS WHO ARE [...] BE BASED ON THE PRIMARY CLINICAL RECORDS. [employer] provides no warranty or guarantee of the accuracy or completeness of information in this document.
== END 2024-11-10 17:36 | disposition home or self-care (01) ==
PROVIDERS: Emergency Provider Emergency Medicine; Referring Provider Emergency Medicine; Visit Provider Emergency Medicine
DX: J45.909 Unspecified asthma, uncomplicated (principal); I10 Essential (primary) hypertension; Z86.711 Personal history of pulmonary embolism; R51.9 Headache, unspecified; Z87.891 Personal history of nicotine dependence
CPT/HCPCS: 71046; 80048; 84484; 85025; 87631; 93005; 94640; 96374; 99283; A4216

== ENCOUNTER → 2024-12-01 | Outpatient (CLI) | payer MEDICARE, SELFPAY ==
[2024-12-01 09:02] LABS: Hematocrit 44.1 % (40-54); Hemoglobin 14.7 g/dL (13.0-16.5); Immature Granulocytes Count 0.010 X10^3/uL (0.0-0.0); Mean Corp Hgb Conc 33.3 g/dL (32-36); Mean Corpuscular Volume 88.4 fL (80-94); Mean Platelet Vol. 9.8 fl (6.2-12.0); NRBC Flagged by Analyzer 0 % (0-5); Platelet Count 255 K/mm3 (150-450); RBC Distribution Width CV 13.0 % (11.6-14.6); RBC Distribution Width SD 41.6 fl (35.1-43.9); Red Blood Count 4.99 M/mm3 (4.6-6.2); White Blood Count 5.4 K/mm3 (4.4-11.0)
[2024-12-06 10:08] LABS: Ash, White <0.10 kU/L (Class 0); Black Walnut <0.10 kU/L (Class 0); Cat Hair / Dander,Stand <0.10 kU/L (Class 0); Cedar, Mountain <0.10 kU/L (Class 0); Cockroach, American <0.10 kU/L (Class 0); Dog Epithelia <0.10 kU/L (Class 0); Elm, American White <0.10 kU/L (Class 0); Mulberry, White <0.10 kU/L (Class 0); Oak, White <0.10 kU/L (Class 0); Pigweed, Rough <0.10 kU/L (Class 0); Ragweed, Short/Common <0.10 kU/L (Class 0); Sycamore, American <0.10 kU/L (Class 0)
[2024-12-06 16:09] LABS: Aspirgillus flavus Negative (Neg:<1:1); Aspirgillus fumigatus Negative (Neg:<1:1); Aspirgillus niger Negative (Neg:<1:1)
== END | disposition home or self-care (01) ==
PROVIDERS: Referring Provider Internal Medicine Critical Care Medicine; Visit Provider Internal Medicine Critical Care Medicine
DX: J45.909 Unspecified asthma, uncomplicated (principal)
CPT/HCPCS: 36415; 82785; 85025; 86003; 86606